=== PATIENT | female | born 1955 | race Caucasian/White ===

== ENCOUNTER 2021-06-18 10:34 | Outpatient (CLI) | payer SELFPAY ==
[2021-06-19 10:22] LABS: SARS-CoV-2 PCR by NAA Not Detected (NotDetected)
== END 2021-06-18 10:35 | disposition home or self-care (01) ==
LOC: CSHLAB 10:34
PROVIDERS: ATTEND Urology
DX: Z01.818 Encounter for other preprocedural examination (principal); Z20.822 Contact with and (suspected) exposure to COVID-19
CPT/HCPCS: 93005; 93010; U0003; U0005

== ENCOUNTER 2021-06-21 09:19 | Day surgery (SDC) | payer OTHER ==
[2021-06-19 10:50] VITALS: BMI 25.6
[2021-06-21] MEDS ORDERED: Lidocaine 1% MPF 2 ML VIAL ONE (10:14)
[2021-06-21] MEDS ORDERED: Iopamidol 30 ML ONE (10:47)
[2021-06-21] MEDS ORDERED: Fentanyl 100 MCG/2 ML VIAL ONE (11:04)
[2021-06-21] MEDS ORDERED: Glycopyrrolate 0.2 MG/ML 5 ML SYRINGE ONE (11:04)
[2021-06-21] MEDS ORDERED: Ondansetron PF 4 MG/2 ML Vial ONE (11:04)
[2021-06-21] MEDS ORDERED: PROPOFOL 20 ML ONE (11:04)
[2021-06-21] MEDS ORDERED: Dexamethasone 20 MG/5 ML VIAL ONE (11:04)
[2021-06-21] MEDS ORDERED: Dexamethasone 4 mg/ml Vial ONE (11:05)
[2021-06-21] MEDS ORDERED: Rocuronium Bromide 10 MG/ML (10ML VIAL) ONE (11:50)
[2021-06-21] MEDS ORDERED: PROPOFOL 40 ML ONE (12:10)
[2021-06-21] MEDS ORDERED: Midazolam HCl 2 mg/2 ml Vial ONE (12:11)
[2021-06-21] MEDS ORDERED: Albuterol Sulfate HFA (OR ONLY) ONE (12:11)
[2021-06-21] MEDS ORDERED: PHENYLEPHRINE-NS 100 MCG/ML 10 ML SYRINGE ONE (12:29)
[2021-06-21] MEDS ORDERED: SUGAMMADEX SODIUM 200 MG/2 ML VIAL ONE (12:34)
== END 2021-06-21 13:55 | disposition home or self-care (01) ==
LOC: CSHSDC 09:19
PROVIDERS: ATTEND Urology
PROC: 0TC68ZZ Extirpation of Matter from Right Ureter, Via Natural or Artificial Opening Endoscopic (ICD-10-PCS; principal; 2021-06-21)
PROC: 0T768DZ Dilation of Right Ureter with Intraluminal Device, Via Natural or Artificial Opening Endoscopic (ICD-10-PCS; principal; 2021-06-21)
DX: N20.1 Calculus of ureter (principal)
CPT/HCPCS: 51600; 74430; 82365; 88300; C1733; C2625; J0690; J1100; J2250; J2405; J2704; J3010; Q9967

== ENCOUNTER 2021-12-14 03:03 | Inpatient (IN) | payer SELFPAY ==
[2021-12-14] MEDS ORDERED: Adenosine 6 MG/2 ML VIAL ONE ×2 (03:21→11:17)
[2021-12-14] MEDS ORDERED: Nitroglycerin 50 MG/250 ML BOT 0 ML ONE ×2 (03:21→11:17)
[2021-12-14] MEDS ORDERED: Heparin 10,000 UNITS/ 10 ML VIAL ONE ×2 (03:21→11:17)
[2021-12-14] MEDS ORDERED: Fentanyl 100 MCG/2 ML VIAL ONE (03:23)
[2021-12-14] MEDS ORDERED: Midazolam HCl 5 mg/5 ml Vial ONE ×2 (03:23→11:19)
[2021-12-14] MEDS ORDERED: Lidocaine 1% 20 ML MDV ONE ×2 (03:23→11:19)
[2021-12-14] MEDS ORDERED: Atropine Sulfate 0.4 mg/1 ml Vial ONE (03:35)
[2021-12-14] MEDS ORDERED: Ondansetron PF 4 MG/2 ML Vial ONE (03:35)
[2021-12-14] MEDS ORDERED: TICAGRELOR 90 MG TABLET ONE (04:19)
[2021-12-14] MEDS ORDERED: Aggrastat 12.5 MG/250 ML 250 ML ONE (04:41)
[2021-12-14] MEDS: Sodium Chloride 0.9% 1,000 ML IV SCH ×2 (07:09→21:23)
[2021-12-14] MEDS: Nitroglycerin 0.4 MG TAB (25 Tab Bottle) SL PRN ×2 (07:47→08:26)
[2021-12-14] MEDS ORDERED: Aggrastat 12.5 MG/250 ML 250 ML IVPB SCH (08:00)
[2021-12-14] MEDS: Morphine 2 MG/ML VIAL SLOW IVP PRN ×4 (08:12→21:01)
[2021-12-14] MEDS ORDERED: Morphine 4 MG/ML VIAL SLOW IVP PRN (08:48)
[2021-12-14] MEDS ORDERED: Ondansetron PF 4 MG/2 ML Vial IVP SCH (09:00)
[2021-12-14] MEDS: Carvedilol 3.125 MG TAB PO SCH ×2 (09:06→16:42)
[2021-12-14] MEDS: Aspirin Chewable 81 MG TAB PO SCH (09:12)
[2021-12-14 09:16] LABS: Troponin I Greater than 45.000 ng/mL (< 0.028)
[2021-12-14] MEDS ORDERED: Morphine 4 MG/ML VIAL SLOW IVP SCH (10:45)
[2021-12-14] MEDS ORDERED: Iopamidol 300 61% 100 ML VIAL FS ONE ×2 (11:00)
[2021-12-14] MEDS ORDERED: Famotidine/PF 20 mg/2ml Vial SLOW IVP SCH (11:15)
[2021-12-14] MEDS ORDERED: Fentanyl 250 MCG/5 ML VIAL ONE (11:20)
[2021-12-14] MEDS ORDERED: Prevnar 13-Val Conj/PF 0.5 ML SYRINGE IM ONE (12:00)
[2021-12-14] MEDS ORDERED: Colchicine 0.6 MG TAB PO SCH ×2 (13:00→14:15)
[2021-12-14] MEDS ORDERED: Midazolam HCl 2 mg/2 ml Vial SLOW IVP PRN (13:21)
[2021-12-14 14:49] LABS: SARS-CoV-2 NAA Rapid Test Not Detected (NotDetected)
[2021-12-14 15:16] LABS: Cardiac Risk 4.7 (Less than 4.5)
[2021-12-14 19:54] LABS: Hemoglobin A1c 5.7 % (4.0-6.0)
[2021-12-14] MEDS ORDERED: Atorvastatin Calcium 40 MG TAB PO SCH (21:00)
[2021-12-14] MEDS: TICAGRELOR 90 MG TABLET PO SCH (21:01)
[2021-12-14] MEDS ORDERED: ALPRAZolam 0.5 MG TAB ONE (22:31)
[2021-12-14] MEDS ORDERED: Ondansetron ODT 4 MG TAB ONE (22:32)
[2021-12-14] MEDS ORDERED: Acetaminophen 500 MG TAB ONE (22:36)
[2021-12-14] MEDS ORDERED: Enoxaparin Sodium 60 MG/0.6 ML SYRINGE ONE (22:37)
[2021-12-14] MEDS ORDERED: Midodrine HCl 2.5 MG TAB ONE (22:44)
[2021-12-14] MEDS ORDERED: ALPRAZolam 0.5 MG TAB PO SCH (23:00)
[2021-12-14] MEDS ORDERED: Enoxaparin Sodium 60 MG/0.6 ML SYRINGE SC SCH (23:00)
[2021-12-14] MEDS: Acetaminophen 500 MG TAB PO PRN (23:20)
[2021-12-14] MEDS: Midodrine HCl 2.5 MG TAB PO PRN (23:21)
[2021-12-14] MEDS: Ondansetron ODT 4 MG TAB SL PRN (23:21)
[2021-12-15] MEDS: Morphine 2 MG/ML VIAL SLOW IVP PRN ×4 (00:06→11:35)
[2021-12-15] MEDS: Sodium Chloride 0.9% 1,000 ML IV SCH (02:25)
[2021-12-15 03:52] LABS: ALT (SGPT) 89 U/L (8-55); AST (SGOT) 611 U/L (5-34); Albumin 3.6 g/dL (3.4-4.8); Alkaline Phosphatase 70 U/L (40-110); Anion Gap 16 mmol/L (10-20); BUN (Urea Nitrogen) 26 mg/dL (9.8-20.1); Bilirubin, Total 0.8 mg/dL (0.2-1.2); Calc. Creatinine Clearance 47 mL/min (70-130); Calcium 8.8 mg/dL (7.8-10.44); Carbon Dioxide 18 mmol/L (23-31); Chloride 109 mmol/L (98-107); Globulin 2.6 g/dL (2.4-3.5); Glucose 137 mg/dL (80-115); Potassium 4.3 mmol/L (3.5-5.1); Protein, Total 6.2 g/dL (5.8-8.1); Sodium 139 mmol/L (136-145)
[2021-12-15 03:53] LABS: #Monocytes 1.6 10x3/uL (0.0-1.1); #Neutrophils 11.9 10x3/uL (1.5-8.4); %Basophils 0.1 % (0.0-2.0); %Lymphocytes 9.4 % (18.0-47.0); %Monocytes 10.4 % (0.0-10.0); %Neutrophils 79.4 % (40.0-75.0); Hemoglobin 12.3 g/dL (12.0-15.5); Mean Corpuscular HGB CONC 32.7 g/dL (32.0-36.0); Mean Corpuscular Hemoglobin 33.4 pg (27.0-33.0); Mean Corpuscular Volume 102.2 fl (81.6-98.3); Mean Platelet Volume 9.5 fl (7.4-10.4); Platelet Count 209 10x3/uL (150-450); RBC Distribution Width 13.5 % (11.5-14.5); Red Blood Cell (RBC) Count 3.68 10x6/uL (3.90-5.03)
[2021-12-15] MEDS: Acetaminophen 500 MG TAB PO PRN ×2 (08:07→20:41)
[2021-12-15] MEDS: Colchicine 0.6 MG TAB PO SCH (08:08)
[2021-12-15] MEDS: TICAGRELOR 90 MG TABLET PO SCH ×2 (08:08→21:57)
[2021-12-15] MEDS: Midodrine HCl 2.5 MG TAB PO PRN ×3 (08:08→20:43)
[2021-12-15] MEDS: ALPRAZolam 0.25 MG TAB PO PRN (08:09)
[2021-12-15] MEDS ORDERED: Enoxaparin Sodium 60 MG/0.6 ML SYRINGE SC SCH (09:00)
[2021-12-15] MEDS ORDERED: Melatonin 3 MG TAB PO PRN (10:50)
[2021-12-15] MEDS ORDERED: Ondansetron PF 4 MG/2 ML Vial IVP SCH (12:00)
[2021-12-15] MEDS ORDERED: Digoxin 0.125 MG TAB PO SCH (12:15)
[2021-12-15] MEDS ORDERED: Empagliflozin 10 MG TAB PO SCH (12:15)
[2021-12-15] MEDS ORDERED: Ivabradine 5 MG TAB PO SCH (12:30)
[2021-12-15] MEDS ORDERED: Multivit, Therapeutic 1 TAB PO SCH (12:30)
[2021-12-15] MEDS ORDERED: Acetylcysteine 800 MG/4 ML VIAL PO SCH (12:30)
[2021-12-15] MEDS: Aspirin Chewable 81 MG TAB PO SCH (12:36)
[2021-12-15] MEDS: Carvedilol 3.125 MG TAB PO SCH ×2 (13:53→17:40)
[2021-12-15] MEDS: DOBUTamine 500 mg/250 ml 500 MG in Premix Bag 1 BAG IVPB SCH (14:58)
[2021-12-15] MEDS: Enoxaparin Sodium 40 MG/0.4 ML SYRINGE SC SCH (21:56)
[2021-12-15] MEDS: Atorvastatin Calcium 40 MG TAB PO SCH (21:57)
[2021-12-15] MEDS: Metoprolol Tartrate 25 MG TAB PO SCH (21:58)
[2021-12-15] MEDS: Ivabradine 5 MG TAB PO SCH (22:00)
[2021-12-15] MEDS: Acetylcysteine 800 MG/4 ML VIAL PO SCH (22:23)
[2021-12-16] MEDS: Ondansetron ODT 4 MG TAB SL PRN ×3 (00:39→22:42)
[2021-12-16] MEDS: Morphine 2 MG/ML VIAL SLOW IVP PRN (01:30)
[2021-12-16] MEDS: ALPRAZolam 0.25 MG TAB PO PRN ×3 (01:31→23:32)
[2021-12-16] MEDS: Midodrine HCl 2.5 MG TAB PO PRN ×4 (07:49→22:41)
[2021-12-16] MEDS: DOBUTamine 500 mg/250 ml 500 MG in Premix Bag 1 BAG IVPB SCH (07:50)
[2021-12-16] MEDS: Enoxaparin Sodium 40 MG/0.4 ML SYRINGE SC SCH ×2 (09:00→20:28)
[2021-12-16] MEDS: Acetylcysteine 800 MG/4 ML VIAL PO SCH ×2 (09:02→20:24)
[2021-12-16] MEDS: Multivit, Therapeutic 1 TAB PO SCH (09:03)
[2021-12-16] MEDS: Empagliflozin 10 MG TAB PO SCH (09:03)
[2021-12-16] MEDS: Digoxin 0.125 MG TAB PO SCH (09:03)
[2021-12-16] MEDS: Ivabradine 5 MG TAB PO SCH ×2 (09:04→20:27)
[2021-12-16] MEDS: Aspirin Chewable 81 MG TAB PO SCH (09:04)
[2021-12-16] MEDS: TICAGRELOR 90 MG TABLET PO SCH ×2 (09:04→20:25)
[2021-12-16] MEDS: Colchicine 0.6 MG TAB PO SCH (09:04)
[2021-12-16] MEDS: Acetaminophen 500 MG TAB PO PRN ×2 (09:04→20:25)
[2021-12-16] MEDS: Carvedilol 3.125 MG TAB PO SCH ×2 (12:36→17:31)
[2021-12-16] MEDS: Metoprolol Tartrate 25 MG TAB PO SCH (12:36)
[2021-12-16] MEDS ORDERED: Sodium Chloride 0.9% 400 ML IV SCH (17:30)
[2021-12-16] MEDS: Atorvastatin Calcium 40 MG TAB PO SCH (20:25)
[2021-12-16] MEDS: Docusate 100 MG CAP PO SCH (20:26)
[2021-12-17] MEDS: Metoprolol Tartrate 25 MG TAB PO SCH (00:04)
[2021-12-17] MEDS: Acetaminophen 500 MG TAB PO PRN (02:20)
[2021-12-17] MEDS: Morphine 2 MG/ML VIAL SLOW IVP PRN (02:35)
[2021-12-17] MEDS: Midodrine HCl 2.5 MG TAB PO PRN (03:20)
[2021-12-17 03:22] LABS: %Basophils 0.2 % (0.0-2.0); %Eosinophils 0.4 % (0.0-6.0); %Lymphocytes 14.4 % (18.0-47.0); %Monocytes 9.3 % (0.0-10.0); %Neutrophils 74.2 % (40.0-75.0); Hemoglobin 10.9 g/dL (12.0-15.5); Mean Corpuscular HGB CONC 33.5 g/dL (32.0-36.0); Mean Corpuscular Hemoglobin 33.9 pg (27.0-33.0); Mean Corpuscular Volume 100.9 fl (81.6-98.3); Mean Platelet Volume 10.3 fl (7.4-10.4); Platelet Count 192 10x3/uL (150-450); RBC Distribution Width 13.3 % (11.5-14.5); Red Blood Cell (RBC) Count 3.22 10x6/uL (3.90-5.03); White Blood Cell (WBC) Count 10.7 10x3/uL (3.5-10.5)
[2021-12-17 03:50] LABS: Anion Gap 16 mmol/L (10-20); BUN (Urea Nitrogen) 48 mg/dL (9.8-20.1); Calc. Creatinine Clearance 36 mL/min (70-130); Calcium 8.9 mg/dL (7.8-10.44); Carbon Dioxide 20 mmol/L (23-31); Chloride 105 mmol/L (98-107); Glucose 106 mg/dL (80-115); Potassium 3.5 mmol/L (3.5-5.1); Sodium 137 mmol/L (136-145)
[2021-12-17] MEDS: DOBUTamine 500 mg/250 ml 500 MG in Premix Bag 1 BAG IVPB SCH (05:20)
[2021-12-17] MEDS ORDERED: DOBUTamine 500 mg/250 ml 250 ML ONE (05:23)
[2021-12-17] MEDS: Aspirin Chewable 81 MG TAB PO SCH (09:01)
[2021-12-17] MEDS: Acetylcysteine 800 MG/4 ML VIAL PO SCH ×2 (09:01→21:29)
[2021-12-17] MEDS: Digoxin 0.125 MG TAB PO SCH (09:02)
[2021-12-17] MEDS: Docusate 100 MG CAP PO SCH ×2 (09:03→21:29)
[2021-12-17] MEDS: Colchicine 0.6 MG TAB PO SCH (09:03)
[2021-12-17] MEDS: Enoxaparin Sodium 40 MG/0.4 ML SYRINGE SC SCH ×3 (09:04→21:34)
[2021-12-17] MEDS: Multivit, Therapeutic 1 TAB PO SCH (09:05)
[2021-12-17] MEDS: TICAGRELOR 90 MG TABLET PO SCH ×2 (09:06→21:31)
[2021-12-17] MEDS: Empagliflozin 10 MG TAB PO SCH (09:15)
[2021-12-17] MEDS: Ivabradine 5 MG TAB PO SCH ×3 (09:16→21:34)
[2021-12-17] MEDS: Carvedilol 3.125 MG TAB PO SCH ×2 (12:38→17:32)
[2021-12-17] MEDS ORDERED: Midodrine HCl 5 MG TAB PO SCH (14:00)
[2021-12-17] MEDS ORDERED: Sodium Chloride 0.45% 250 ML IV SCH (14:15)
[2021-12-17] MEDS ORDERED: Potassium Chloride 20 MEQ TAB PO SCH (17:00)
[2021-12-17] MEDS: Ondansetron ODT 4 MG TAB SL PRN (19:44)
[2021-12-17] MEDS: Atorvastatin Calcium 40 MG TAB PO SCH ×2 (21:17→21:34)
[2021-12-18] MEDS ORDERED: Haloperidol Lactate 5 MG/ML VIAL SLOW IVP SCH (00:15)
[2021-12-18] MEDS: Morphine 2 MG/ML VIAL SLOW IVP PRN (00:47)
[2021-12-18 03:04] LABS: Hemoglobin 10.8 g/dL (12.0-15.5); Mean Corpuscular HGB CONC 34.4 g/dL (32.0-36.0); Mean Corpuscular Hemoglobin 33.6 pg (27.0-33.0); Mean Corpuscular Volume 97.8 fl (81.6-98.3); Mean Platelet Volume 10.7 fl (7.4-10.4); Platelet Count 245 10x3/uL (150-450); RBC Distribution Width 13.5 % (11.5-14.5); Red Blood Cell (RBC) Count 3.21 10x6/uL (3.90-5.03); White Blood Cell (WBC) Count 11.3 10x3/uL (3.5-10.5)
[2021-12-18 03:14] LABS: MDiff Complete? YES; Manual Diff?? YES
[2021-12-18 03:20] LABS: Anion Gap 20 mmol/L (10-20); BUN (Urea Nitrogen) 50 mg/dL (9.8-20.1); Calc. Creatinine Clearance 33 mL/min (70-130); Calcium 9.2 mg/dL (7.8-10.44); Carbon Dioxide 16 mmol/L (23-31); Chloride 106 mmol/L (98-107); Glucose 139 mg/dL (80-115); Sodium 138 mmol/L (136-145)
[2021-12-18 03:42] LABS: Band 11 % (5-11); Lymphocytes 11 % (21-51); Monocytes 7 % (0-10); Neutrophil 70 % (42-75); Reactive Lymphocytes 1 % (0-10)
[2021-12-18 03:43] LABS: Platelet Morphology Comment Appears Adequate
[2021-12-18] MEDS: Enoxaparin Sodium 40 MG/0.4 ML SYRINGE SC SCH (08:48)
[2021-12-18] MEDS: Ivabradine 5 MG TAB PO SCH ×2 (08:49→20:12)
[2021-12-18] MEDS: Docusate 100 MG CAP PO SCH (08:49)
[2021-12-18] MEDS: Multivit, Therapeutic 1 TAB PO SCH (08:49)
[2021-12-18] MEDS: Digoxin 0.125 MG TAB PO SCH (08:50)
[2021-12-18] MEDS: Colchicine 0.6 MG TAB PO SCH (08:50)
[2021-12-18] MEDS: Aspirin Chewable 81 MG TAB PO SCH (08:50)
[2021-12-18] MEDS: Acetylcysteine 800 MG/4 ML VIAL PO SCH (08:51)
[2021-12-18] MEDS: ALPRAZolam 0.25 MG TAB PO PRN (08:51)
[2021-12-18] MEDS: TICAGRELOR 90 MG TABLET PO SCH ×2 (08:51→20:13)
[2021-12-18] MEDS: Carvedilol 3.125 MG TAB PO SCH ×2 (08:51→18:22)
[2021-12-18] MEDS: Empagliflozin 10 MG TAB PO SCH (08:51)
[2021-12-18] MEDS ORDERED: Dexmedetomidine In 0.9 % NaCl 100 ML ONE (10:24)
[2021-12-18] MEDS: Dexmedetomidine In 0.9 % NaCl 400 MCG in Premix Bag 1 BAG IVPB SCH ×3 (10:26→20:13)
[2021-12-18] MEDS: Atorvastatin Calcium 40 MG TAB PO SCH (20:12)
[2021-12-18] MEDS ORDERED: Enoxaparin Sodium 40 MG/0.4 ML SYRINGE SC SCH (21:00)
[2021-12-19] MEDS: Dexmedetomidine In 0.9 % NaCl 400 MCG in Premix Bag 1 BAG IVPB SCH (02:22)
[2021-12-19 03:50] LABS: Hemoglobin 11.2 g/dL (12.0-15.5); Mean Corpuscular HGB CONC 32.4 g/dL (32.0-36.0); Mean Corpuscular Hemoglobin 33.4 pg (27.0-33.0); Mean Corpuscular Volume 103.3 fl (81.6-98.3); Mean Platelet Volume 11.1 fl (7.4-10.4); Platelet Count 191 10x3/uL (150-450); Red Blood Cell (RBC) Count 3.35 10x6/uL (3.90-5.03); White Blood Cell (WBC) Count 9.1 10x3/uL (3.5-10.5)
[2021-12-19 04:04] LABS: Anion Gap 23 mmol/L (10-20); BUN (Urea Nitrogen) 75 mg/dL (9.8-20.1); Calc. Creatinine Clearance 24 mL/min (70-130); Calcium 8.5 mg/dL (7.8-10.44); Carbon Dioxide 15 mmol/L (23-31); Chloride 107 mmol/L (98-107); Glucose 86 mg/dL (80-115); Sodium 140 mmol/L (136-145)
[2021-12-19 04:13] LABS: ALT (SGPT) 906 U/L (8-55); AST (SGOT) 2156 U/L (5-34); Albumin 3.2 g/dL (3.4-4.8); Alkaline Phosphatase 77 U/L (40-110); Bilirubin, Direct 1.6 mg/dL (0.1-0.3); Bilirubin, Total 2.6 mg/dL (0.2-1.2); Protein, Total 5.6 g/dL (5.8-8.1)
[2021-12-19 04:19] LABS: MDiff Complete? YES; Manual Diff?? YES
[2021-12-19 04:24] LABS: Band 11 % (5-11); Lymphocytes 5 % (21-51); Metamyelocyte 1 % (0-0); Monocytes 10 % (0-10); Neutrophil 73 % (42-75)
[2021-12-19 04:25] LABS: Platelet Morphology Comment Appears Adequate
[2021-12-19] MEDS: TICAGRELOR 90 MG TABLET PO SCH ×2 (08:29→20:38)
[2021-12-19] MEDS: Colchicine 0.6 MG TAB PO SCH (08:29)
[2021-12-19] MEDS: Aspirin Chewable 81 MG TAB PO SCH (08:29)
[2021-12-19] MEDS: Carvedilol 3.125 MG TAB PO SCH ×2 (08:29→17:30)
[2021-12-19] MEDS: Digoxin 0.125 MG TAB PO SCH (08:29)
[2021-12-19] MEDS: Empagliflozin 10 MG TAB PO SCH (08:30)
[2021-12-19] MEDS: Multivit, Therapeutic 1 TAB PO SCH (08:30)
[2021-12-19] MEDS: Ivabradine 5 MG TAB PO SCH ×2 (10:45→20:33)
[2021-12-19] MEDS: Enoxaparin Sodium 30 MG/0.3 ML SYRINGE SC SCH (20:38)
[2021-12-19] MEDS: Atorvastatin Calcium 40 MG TAB PO SCH (20:38)
[2021-12-20 03:54] LABS: #Eosinphils 0.1 10x3/uL (0.0-0.5); #Monocytes 0.9 10x3/uL (0.0-1.1); %Basophils 0.3 % (0.0-2.0); %Eosinophils 0.5 % (0.0-6.0); %Lymphocytes 6.8 % (18.0-47.0); %Neutrophils 80.6 % (40.0-75.0); Hemoglobin 10.7 g/dL (12.0-15.5); Mean Corpuscular HGB CONC 32.6 g/dL (32.0-36.0); Mean Corpuscular Hemoglobin 33.1 pg (27.0-33.0); Mean Corpuscular Volume 101.5 fl (81.6-98.3); Platelet Count 236 10x3/uL (150-450); RBC Distribution Width 13.9 % (11.5-14.5); Red Blood Cell (RBC) Count 3.23 10x6/uL (3.90-5.03); White Blood Cell (WBC) Count 11.2 10x3/uL (3.5-10.5)
[2021-12-20 04:01] LABS: Anion Gap 19 mmol/L (10-20); BUN (Urea Nitrogen) 83 mg/dL (9.8-20.1); Calc. Creatinine Clearance 25 mL/min (70-130); Calcium 8.8 mg/dL (7.8-10.44); Carbon Dioxide 18 mmol/L (23-31); Chloride 108 mmol/L (98-107); Glucose 80 mg/dL (80-115); Potassium 3.9 mmol/L (3.5-5.1); Sodium 141 mmol/L (136-145)
[2021-12-20 07:38] LABS: ALT (SGPT) 873 U/L (8-55); AST (SGOT) 1409 U/L (5-34)
[2021-12-20] MEDS: Multivit, Therapeutic 1 TAB PO SCH (08:34)
[2021-12-20] MEDS: Colchicine 0.6 MG TAB PO SCH (08:34)
[2021-12-20] MEDS: Carvedilol 3.125 MG TAB PO SCH ×2 (08:34→16:51)
[2021-12-20] MEDS: Aspirin Chewable 81 MG TAB PO SCH (08:34)
[2021-12-20] MEDS: TICAGRELOR 90 MG TABLET PO SCH ×2 (08:34→21:01)
[2021-12-20] MEDS: Digoxin 0.125 MG TAB PO SCH (08:34)
[2021-12-20] MEDS: Empagliflozin 10 MG TAB PO SCH (08:36)
[2021-12-20] MEDS: Ivabradine 5 MG TAB PO SCH (08:37)
[2021-12-20] MEDS: Ondansetron ODT 4 MG TAB SL PRN (12:33)
[2021-12-20] MEDS: Enoxaparin Sodium 30 MG/0.3 ML SYRINGE SC SCH (21:00)
[2021-12-20] MEDS: Atorvastatin Calcium 40 MG TAB PO SCH (21:01)
[2021-12-21] MEDS: Carvedilol 3.125 MG TAB PO SCH ×2 (08:22→16:37)
[2021-12-21] MEDS: Aspirin Chewable 81 MG TAB PO SCH (08:22)
[2021-12-21] MEDS: Colchicine 0.6 MG TAB PO SCH (08:23)
[2021-12-21] MEDS: Digoxin 0.125 MG TAB PO SCH (08:23)
[2021-12-21] MEDS: Multivit, Therapeutic 1 TAB PO SCH (08:24)
[2021-12-21] MEDS: TICAGRELOR 90 MG TABLET PO SCH ×2 (08:25→20:16)
[2021-12-21] MEDS: Empagliflozin 10 MG TAB PO SCH (08:26)
[2021-12-21 10:55] LABS: #Eosinphils 0.1 10x3/uL (0.0-0.5); #Monocytes 0.8 10x3/uL (0.0-1.1); #Neutrophils 6.3 10x3/uL (1.5-8.4); %Basophils 0.2 % (0.0-2.0); %Eosinophils 1.1 % (0.0-6.0); %Lymphocytes 6.2 % (18.0-47.0); %Monocytes 9.5 % (0.0-10.0); %Neutrophils 78.3 % (40.0-75.0); Hemoglobin 10.7 g/dL (12.0-15.5); Mean Corpuscular HGB CONC 34.1 g/dL (32.0-36.0); Mean Corpuscular Hemoglobin 33.8 pg (27.0-33.0); Mean Corpuscular Volume 99.1 fl (81.6-98.3); Mean Platelet Volume 12.2 fl (7.4-10.4); Platelet Count 254 10x3/uL (150-450); RBC Distribution Width 14.1 % (11.5-14.5); Red Blood Cell (RBC) Count 3.17 10x6/uL (3.90-5.03)
[2021-12-21 11:09] LABS: ALT (SGPT) 1126 U/L (8-55); AST (SGOT) 1809 U/L (5-34); Albumin 2.9 g/dL (3.4-4.8); Alkaline Phosphatase 100 U/L (40-110); Anion Gap 16 mmol/L (10-20); BUN (Urea Nitrogen) 59 mg/dL (9.8-20.1); Bilirubin, Total 1.8 mg/dL (0.2-1.2); Calc. Creatinine Clearance 36 mL/min (70-130); Calcium 8.5 mg/dL (7.8-10.44); Carbon Dioxide 20 mmol/L (23-31); Chloride 111 mmol/L (98-107); Globulin 3.1 g/dL (2.4-3.5); Glucose 89 mg/dL (80-115); Potassium 3.5 mmol/L (3.5-5.1); Sodium 143 mmol/L (136-145)
[2021-12-21] MEDS ORDERED: Potassium Chloride 20 MEQ TAB PO SCH (11:45)
[2021-12-21 13:23] LABS: Bilirubin Neg (Negative); Blood, Urine 250 (Negative); Clarity Cloudy (Clear); Glucose, Urine (Dipstick) 250 mg/dL (Negative); Ketone, Urine 15 mg/dL (Negative); Leukocyte 500 (Negative); Nitrite Negative (Negative); Protein, Urine (Dipstick) 100 mg/dl (Neg-Trace)
[2021-12-21 13:25] LABS: Urine Culture Reflex No No
[2021-12-21 13:27] LABS: WBC/HPF 21-50 HPF (0-3)
[2021-12-21 13:28] LABS: Bacteria/HPF 2+ HPF (None Seen)
[2021-12-21] MEDS: Enoxaparin Sodium 30 MG/0.3 ML SYRINGE SC SCH (20:16)
[2021-12-21] MEDS: Ondansetron ODT 4 MG TAB SL PRN (21:23)
[2021-12-22] MEDS: Ondansetron ODT 4 MG TAB SL PRN ×2 (01:29→07:45)
[2021-12-22 04:31] LABS: #Monocytes 0.9 10x3/uL (0.0-1.1); #Neutrophils 6.7 10x3/uL (1.5-8.4); %Basophils 0.2 % (0.0-2.0); %Eosinophils 0.5 % (0.0-6.0); %Monocytes 10.1 % (0.0-10.0); %Neutrophils 79.7 % (40.0-75.0); Hemoglobin 12.8 g/dL (12.0-15.5); Mean Corpuscular Hemoglobin 33.6 pg (27.0-33.0); Mean Corpuscular Volume 98.7 fl (81.6-98.3); Mean Platelet Volume 12.3 fl (7.4-10.4); Platelet Count 265 10x3/uL (150-450); RBC Distribution Width 14.1 % (11.5-14.5); Red Blood Cell (RBC) Count 3.81 10x6/uL (3.90-5.03); White Blood Cell (WBC) Count 8.4 10x3/uL (3.5-10.5)
[2021-12-22 04:56] LABS: ALT (SGPT) 1002 U/L (8-55); AST (SGOT) 1254 U/L (5-34); Albumin 3.1 g/dL (3.4-4.8); Alkaline Phosphatase 114 U/L (40-110); Anion Gap 21 mmol/L (10-20); BUN (Urea Nitrogen) 51 mg/dL (9.8-20.1); Bilirubin, Total 1.7 mg/dL (0.2-1.2); Calc. Creatinine Clearance 38 mL/min (70-130); Carbon Dioxide 15 mmol/L (23-31); Chloride 114 mmol/L (98-107); Globulin 2.7 g/dL (2.4-3.5); Glucose 86 mg/dL (80-115); Potassium 4.6 mmol/L (3.5-5.1); Protein, Total 5.8 g/dL (5.8-8.1); Sodium 145 mmol/L (136-145)
[2021-12-22] MEDS: Multivit, Therapeutic 1 TAB PO SCH (08:03)
[2021-12-22] MEDS: Aspirin Chewable 81 MG TAB PO SCH (08:04)
[2021-12-22] MEDS: TICAGRELOR 90 MG TABLET PO SCH ×2 (08:04→22:28)
[2021-12-22] MEDS: Carvedilol 3.125 MG TAB PO SCH ×2 (08:04→16:04)
[2021-12-22] MEDS: Ondansetron PF 4 MG/2 ML Vial IVP PRN ×2 (14:20→19:24)
[2021-12-22] MEDS: Enoxaparin Sodium 30 MG/0.3 ML SYRINGE SC SCH (22:28)
[2021-12-23] MEDS: Aspirin Chewable 81 MG TAB PO SCH (09:44)
[2021-12-23] MEDS: Multivit, Therapeutic 1 TAB PO SCH (09:44)
[2021-12-23] MEDS: Carvedilol 3.125 MG TAB PO SCH ×2 (09:44→17:24)
[2021-12-23] MEDS: TICAGRELOR 90 MG TABLET PO SCH ×2 (09:45→21:14)
[2021-12-23 12:01] LABS: ALT (SGPT) 663 U/L (8-55); AST (SGOT) 531 U/L (5-34); Albumin 3.1 g/dL (3.4-4.8); Alkaline Phosphatase 96 U/L (40-110); Anion Gap 17 mmol/L (10-20); BUN (Urea Nitrogen) 50 mg/dL (9.8-20.1); Bilirubin, Total 1.7 mg/dL (0.2-1.2); Calc. Creatinine Clearance 36 mL/min (70-130); Calcium 9.6 mg/dL (7.8-10.44); Carbon Dioxide 20 mmol/L (23-31); Chloride 113 mmol/L (98-107); Globulin 3.4 g/dL (2.4-3.5); Glucose 110 mg/dL (80-115); Potassium 4.1 mmol/L (3.5-5.1); Protein, Total 6.5 g/dL (5.8-8.1); Sodium 146 mmol/L (136-145)
[2021-12-23] MEDS: Ondansetron PF 4 MG/2 ML Vial IVP PRN (12:37)
[2021-12-23] MEDS: Enoxaparin Sodium 30 MG/0.3 ML SYRINGE SC SCH (21:13)
[2021-12-23] MEDS: Nitroglycerin 0.4 MG TAB (25 Tab Bottle) SL PRN (22:11)
[2021-12-24 04:45] LABS: ALT (SGPT) 539 U/L (8-55); AST (SGOT) 326 U/L (5-34); Albumin 3.3 g/dL (3.4-4.8); Alkaline Phosphatase 97 U/L (40-110); Anion Gap 19 mmol/L (10-20); BUN (Urea Nitrogen) 51 mg/dL (9.8-20.1); Bilirubin, Total 1.7 mg/dL (0.2-1.2); Calc. Creatinine Clearance 37 mL/min (70-130); Calcium 9.5 mg/dL (7.8-10.44); Carbon Dioxide 19 mmol/L (23-31); Chloride 114 mmol/L (98-107); Globulin 3.3 g/dL (2.4-3.5); Glucose 108 mg/dL (80-115); Potassium 4.3 mmol/L (3.5-5.1); Protein, Total 6.6 g/dL (5.8-8.1); Sodium 148 mmol/L (136-145)
[2021-12-24] MEDS: Aspirin Chewable 81 MG TAB PO SCH (09:01)
[2021-12-24] MEDS: Multivit, Therapeutic 1 TAB PO SCH (09:01)
[2021-12-24] MEDS: TICAGRELOR 90 MG TABLET PO SCH (09:02)
[2021-12-24] MEDS ORDERED: Furosemide 40 MG/4 ML VIAL SLOW IVP SCH (10:15)
[2021-12-24 11:11] LABS: Thyroid Stimulating Hormone 4.9778 uIU/mL (0.35-4.94)
[2021-12-24 15:07] LABS: T4 5.6 ug/dL (4.87-11.72)
[2021-12-24] MEDS ORDERED: Clopidogrel Bisulfate 300 MG TAB PO SCH (17:30)
[2021-12-24] MEDS ORDERED: Enoxaparin Sodium 30 MG/0.3 ML SYRINGE ONE (20:50)
[2021-12-24] MEDS ORDERED: Ondansetron PF 4 MG/2 ML Vial IVP SCH (21:00)
[2021-12-24] MEDS: Enoxaparin Sodium 30 MG/0.3 ML SYRINGE SC SCH (21:20)
[2021-12-24] MEDS: Melatonin 3 MG TAB PO SCH (21:22)
[2021-12-25] MEDS: Multivit, Therapeutic 1 TAB PO SCH (09:42)
[2021-12-25] MEDS: Clopidogrel Bisulfate 75 MG TAB PO SCH (09:42)
[2021-12-25] MEDS: Aspirin Chewable 81 MG TAB PO SCH (09:42)
[2021-12-25 11:35] LABS: ALT (SGPT) 398 U/L (8-55); AST (SGOT) 136 U/L (5-34); Albumin 3.4 g/dL (3.4-4.8); Alkaline Phosphatase 84 U/L (40-110); Anion Gap 18 mmol/L (10-20); BUN (Urea Nitrogen) 63 mg/dL (9.8-20.1); Bilirubin, Total 1.6 mg/dL (0.2-1.2); Calc. Creatinine Clearance 30 mL/min (70-130); Calcium 9.5 mg/dL (7.8-10.44); Carbon Dioxide 23 mmol/L (23-31); Chloride 110 mmol/L (98-107); Estimated GFR 26; Globulin 3.6 g/dL (2.4-3.5); Glucose 145 mg/dL (80-115); Potassium 3.5 mmol/L (3.5-5.1); Sodium 147 mmol/L (136-145)
[2021-12-25] MEDS ORDERED: Potassium Chloride 20 MEQ TAB PO SCH (14:00)
[2021-12-25] MEDS: Ondansetron ODT 4 MG TAB SL PRN (18:16)
[2021-12-25] MEDS: Acetaminophen 500 MG TAB PO PRN (20:44)
[2021-12-25] MEDS: Melatonin 3 MG TAB PO SCH (20:46)
[2021-12-25] MEDS: Enoxaparin Sodium 30 MG/0.3 ML SYRINGE SC SCH (20:46)
[2021-12-25] MEDS: DOBUTamine 500 mg/250 ml 250 ML IVPB SCH (22:57)
[2021-12-25] MEDS: ALPRAZolam 0.25 MG TAB PO PRN (23:58)
[2021-12-26] MEDS: Aspirin Chewable 81 MG TAB PO SCH (08:29)
[2021-12-26] MEDS: Clopidogrel Bisulfate 75 MG TAB PO SCH (08:29)
[2021-12-26] MEDS: Multivit, Therapeutic 1 TAB PO SCH (08:29)
[2021-12-26 10:12] LABS: Hemoglobin 11.9 g/dL (12.0-15.5); Mean Corpuscular HGB CONC 32.6 g/dL (32.0-36.0); Mean Corpuscular Hemoglobin 33.7 pg (27.0-33.0); Mean Corpuscular Volume 103.4 fl (81.6-98.3); Mean Platelet Volume 12.8 fl (7.4-10.4); Platelet Count 263 10x3/uL (150-450); Red Blood Cell (RBC) Count 3.53 10x6/uL (3.90-5.03); White Blood Cell (WBC) Count 12.5 10x3/uL (3.5-10.5)
[2021-12-26 10:38] LABS: ALT (SGPT) 272 U/L (8-55); AST (SGOT) 75 U/L (5-34); Alkaline Phosphatase 72 U/L (40-110); Anion Gap 17 mmol/L (10-20); BUN (Urea Nitrogen) 72 mg/dL (9.8-20.1); Bilirubin, Total 1.7 mg/dL (0.2-1.2); Calc. Creatinine Clearance 29 mL/min (70-130); Calcium 9.4 mg/dL (7.8-10.44); Carbon Dioxide 23 mmol/L (23-31); Chloride 115 mmol/L (98-107); Estimated GFR 25; Globulin 3.5 g/dL (2.4-3.5); Glucose 120 mg/dL (80-115); Magnesium 2.9 mg/dL (1.6-2.6); Potassium 4.2 mmol/L (3.5-5.1); Protein, Total 6.5 g/dL (5.8-8.1); Sodium 151 mmol/L (136-145)
[2021-12-26] MEDS: Acetaminophen 500 MG TAB PO PRN ×2 (11:45→23:58)
[2021-12-26] MEDS ORDERED: diphenhydrAMINE 50 MG/ML VIAL ONE (16:13)
[2021-12-26] MEDS ORDERED: diphenhydrAMINE 50 MG/ML VIAL IVP SCH (16:15)
[2021-12-26 19:17] LABS: Bilirubin 1+ (Negative); Blood, Urine Negative (Negative); Clarity Clear (Clear); Glucose, Urine (Dipstick) Normal (Negative); Ketone, Urine 5 mg/dL (Negative); Leukocyte 25 (Negative); Nitrite Negative (Negative); Protein, Urine (Dipstick) 30 mg/dl (Neg-Trace)
[2021-12-26 19:21] LABS: Urine Culture Reflex No No
[2021-12-26 19:38] LABS: RBC/HPF 0-3 HPF (0-3); WBC/HPF 0-3 HPF (0-3)
[2021-12-26 19:39] LABS: Bacteria/HPF 1+ HPF (None Seen)
[2021-12-26] MEDS ORDERED: Cyanocobalamin 1000 MCG/ML VIAL IM SCH (20:00)
[2021-12-26] MEDS ORDERED: Albumin 25% 25 GM/100 ML BOT IVPB SCH (21:00)
[2021-12-26] MEDS ORDERED: Allopurinol 100 MG TAB PO SCH (21:00)
[2021-12-26] MEDS ORDERED: Colchicine 0.6 MG TAB PO SCH (21:00)
[2021-12-26] MEDS: Melatonin 3 MG TAB PO SCH (21:31)
[2021-12-26] MEDS: TICAGRELOR 90 MG TABLET PO SCH (21:32)
[2021-12-26] MEDS: DOBUTamine 500 mg/250 ml 250 ML IVPB SCH (22:12)
[2021-12-26] MEDS: ALPRAZolam 0.25 MG TAB PO PRN (23:58)
[2021-12-27 01:13] LABS: Actual Bicarbonate (HCO3a) 25.1 mEq/L (22-28); Base Excess (BEa) 0.1 mEq/L (-2.0 to +3.0); CO2 Tension 42.2 mmHg (35.0-45.0); Calcium, Ionized (arterial) 1.21 mmol/L (1.12-1.30); Carboxyhemoglobin (COHb) 0.2 gm% (0.0-3.0); Critical Notified By: CP.PH; Hemoglobin (Hb) 12.5 g/dL (12.0-16.0); O2 Tension (PaO2), arterial 108.1 mmHg (> 80.0); Puncture Site RBA; RapidComm Collect By CP.PH; pH, Arterial 7.39 (7.35-7.45)
[2021-12-27] MEDS ORDERED: Sodium Chloride 0.9% 500 ML IV SCH (01:30)
[2021-12-27 01:40] LABS: Hemoglobin 12.5 g/dL (12.0-15.5); Mean Corpuscular Hemoglobin 33.4 pg (27.0-33.0); Mean Corpuscular Volume 101.3 fl (81.6-98.3); Mean Platelet Volume 12.9 fl (7.4-10.4); Platelet Count 261 10x3/uL (150-450); RBC Distribution Width 15.2 % (11.5-14.5); Red Blood Cell (RBC) Count 3.74 10x6/uL (3.90-5.03); White Blood Cell (WBC) Count 10.2 10x3/uL (3.5-10.5)
[2021-12-27 01:55] LABS: ALT (SGPT) 229 U/L (8-55); AST (SGOT) 70 U/L (5-34); Alkaline Phosphatase 69 U/L (40-110); Anion Gap 18 mmol/L (10-20); BUN (Urea Nitrogen) 76 mg/dL (9.8-20.1); Bilirubin, Total 1.8 mg/dL (0.2-1.2); Calc. Creatinine Clearance 28 mL/min (70-130); Calcium 9.6 mg/dL (7.8-10.44); Carbon Dioxide 24 mmol/L (23-31); Chloride 115 mmol/L (98-107); Estimated GFR 24; Globulin 3.5 g/dL (2.4-3.5); Glucose 130 mg/dL (80-115); MDiff Complete? YES; Magnesium 2.9 mg/dL (1.6-2.6); Potassium 4.3 mmol/L (3.5-5.1); Protein, Total 6.5 g/dL (5.8-8.1); Sodium 153 mmol/L (136-145)
[2021-12-27 01:59] LABS: Band 6 % (5-11); Lymphocytes 4 % (21-51); Metamyelocyte 1 % (0-0); Monocytes 5 % (0-10); Neutrophil 84 % (42-75)
[2021-12-27 02:00] LABS: Platelet Morphology Comment Appears Adequate; RBC Morphology Normal
[2021-12-27 02:27] LABS: Bilirubin Neg (Negative); Blood, Urine 10 (Negative); Clarity Cloudy (Clear); Glucose, Urine (Dipstick) Normal (Negative); Ketone, Urine 5 mg/dL (Negative); Leukocyte 500 (Negative); Nitrite Negative (Negative); Protein, Urine (Dipstick) 30 mg/dl (Neg-Trace); Specific Gravity, Urine 1.015 (1.002-1.036)
[2021-12-27 02:40] LABS: Bacteria/HPF 2+ HPF (None Seen); RBC/HPF 0-3 HPF (0-3); Squamous Epithelial 21-50 HPF (0-3); Urine Culture Reflex No No
[2021-12-27] MEDS ORDERED: D5 1/4 NS 500 ML IV SCH (02:45)
[2021-12-27] MEDS ORDERED: Albumin 25% 25 GM/100 ML BOT IVPB SCH (02:45)
[2021-12-27] MEDS ORDERED: DEXTROSE IVPB SCH (03:00)
[2021-12-27] MEDS ORDERED: AMIODARONE IVPB SCH (03:00)
[2021-12-27] MEDS ORDERED: Lidocaine 2% PF 100 mg/5 ml Syringe IVP SCH (03:30)
[2021-12-27] MEDS: Amiodarone In Dextrose 200 ML IVPB SCH ×2 (08:09→22:16)
[2021-12-27 08:45] LABS: Anion Gap 19 mmol/L (10-20); BUN (Urea Nitrogen) 82 mg/dL (9.8-20.1); Calc. Creatinine Clearance 26 mL/min (70-130); Calcium 9.5 mg/dL (7.8-10.44); Carbon Dioxide 21 mmol/L (23-31); Chloride 117 mmol/L (98-107); Estimated GFR 23; Glucose 150 mg/dL (80-115); Potassium 4.6 mmol/L (3.5-5.1); Sodium 152 mmol/L (136-145)
[2021-12-27] MEDS: TICAGRELOR 90 MG TABLET PO SCH ×2 (09:54→21:30)
[2021-12-27] MEDS: Colchicine 0.6 MG TAB PO SCH (09:54)
[2021-12-27] MEDS: Multivit, Therapeutic 1 TAB PO SCH (09:54)
[2021-12-27] MEDS: Folic Acid 1 MG TAB PO SCH (09:54)
[2021-12-27] MEDS: Aspirin Chewable 81 MG TAB PO SCH (09:54)
[2021-12-27] MEDS: Allopurinol 100 MG TAB PO SCH (09:54)
[2021-12-27] MEDS: Rivaroxaban 10 MG TAB PO SCH (11:32)
[2021-12-27] MEDS: Acetaminophen 500 MG TAB PO PRN (11:42)
[2021-12-27] MEDS: Melatonin 3 MG TAB PO SCH (21:30)
[2021-12-28 05:21] LABS: Hemoglobin 11.9 g/dL (12.0-15.5); Mean Corpuscular HGB CONC 33.2 g/dL (32.0-36.0); Mean Corpuscular Volume 99.2 fl (81.6-98.3); Mean Platelet Volume 13.4 fl (7.4-10.4); Platelet Count 253 10x3/uL (150-450); RBC Distribution Width 15.5 % (11.5-14.5); Red Blood Cell (RBC) Count 3.61 10x6/uL (3.90-5.03); White Blood Cell (WBC) Count 6.6 10x3/uL (3.5-10.5)
[2021-12-28 05:53] LABS: ALT (SGPT) 143 U/L (8-55); AST (SGOT) 49 U/L (5-34); Alkaline Phosphatase 65 U/L (40-110); Anion Gap 18 mmol/L (10-20); BUN (Urea Nitrogen) 68 mg/dL (9.8-20.1); Bilirubin, Total 1.2 mg/dL (0.2-1.2); Calc. Creatinine Clearance 37 mL/min (70-130); Calcium 9.3 mg/dL (7.8-10.44); Carbon Dioxide 24 mmol/L (23-31); Chloride 116 mmol/L (98-107); Estimated GFR 34; Globulin 3.4 g/dL (2.4-3.5); Glucose 116 mg/dL (80-115); Potassium 3.9 mmol/L (3.5-5.1); Protein, Total 6.4 g/dL (5.8-8.1); Sodium 154 mmol/L (136-145)
[2021-12-28] MEDS: Multivit, Therapeutic 1 TAB PO SCH (08:32)
[2021-12-28] MEDS: Aspirin Chewable 81 MG TAB PO SCH (08:32)
[2021-12-28] MEDS: Folic Acid 1 MG TAB PO SCH (08:32)
[2021-12-28] MEDS: Colchicine 0.6 MG TAB PO SCH (08:32)
[2021-12-28] MEDS: Rivaroxaban 10 MG TAB PO SCH (08:32)
[2021-12-28] MEDS: TICAGRELOR 90 MG TABLET PO SCH ×2 (08:33→20:41)
[2021-12-28] MEDS: Amiodarone 200 MG TAB PO SCH (08:33)
[2021-12-28] MEDS: Allopurinol 100 MG TAB PO SCH (08:33)
[2021-12-28] MEDS: Ondansetron PF 4 MG/2 ML Vial IVP PRN (19:30)
[2021-12-28] MEDS: Melatonin 3 MG TAB PO SCH (20:41)
[2021-12-29] MEDS: Amiodarone 200 MG TAB PO SCH (08:03)
[2021-12-29] MEDS: TICAGRELOR 90 MG TABLET PO SCH ×2 (08:03→20:37)
[2021-12-29] MEDS: Multivit, Therapeutic 1 TAB PO SCH (08:03)
[2021-12-29] MEDS: Allopurinol 100 MG TAB PO SCH (08:03)
[2021-12-29] MEDS: Aspirin Chewable 81 MG TAB PO SCH (08:03)
[2021-12-29] MEDS: Rivaroxaban 10 MG TAB PO SCH (08:03)
[2021-12-29] MEDS: Colchicine 0.6 MG TAB PO SCH (08:03)
[2021-12-29] MEDS: Folic Acid 1 MG TAB PO SCH (08:03)
[2021-12-29 10:07] LABS: Anion Gap 20 mmol/L (10-20); BUN (Urea Nitrogen) 62 mg/dL (9.8-20.1); Calc. Creatinine Clearance 41 mL/min (70-130); Calcium 9.3 mg/dL (7.8-10.44); Carbon Dioxide 17 mmol/L (23-31); Chloride 121 mmol/L (98-107); Estimated GFR 40; Glucose 135 mg/dL (80-115); Potassium 4.3 mmol/L (3.5-5.1); Sodium 154 mmol/L (136-145)
[2021-12-29] MEDS: Melatonin 3 MG TAB PO SCH (20:36)
[2021-12-30 03:24] LABS: Hemoglobin 12.3 g/dL (12.0-15.5); Mean Corpuscular Hemoglobin 32.5 pg (27.0-33.0); Mean Corpuscular Volume 101.3 fl (81.6-98.3); Mean Platelet Volume 12.9 fl (7.4-10.4); Platelet Count 251 10x3/uL (150-450); RBC Distribution Width 15.9 % (11.5-14.5); Red Blood Cell (RBC) Count 3.79 10x6/uL (3.90-5.03); White Blood Cell (WBC) Count 6.3 10x3/uL (3.5-10.5)
[2021-12-30 03:41] LABS: Anion Gap 17 mmol/L (10-20); BUN (Urea Nitrogen) 59 mg/dL (9.8-20.1); Calc. Creatinine Clearance 46 mL/min (70-130); Carbon Dioxide 23 mmol/L (23-31); Chloride 120 mmol/L (98-107); Estimated GFR 46; Glucose 104 mg/dL (80-115); Magnesium 2.4 mg/dL (1.6-2.6); Potassium 4.1 mmol/L (3.5-5.1); Sodium 156 mmol/L (136-145)
[2021-12-30] MEDS: Ondansetron ODT 4 MG TAB SL PRN (05:07)
[2021-12-30] MEDS: Amiodarone 200 MG TAB PO SCH (08:58)
[2021-12-30] MEDS: Aspirin Chewable 81 MG TAB PO SCH (08:58)
[2021-12-30] MEDS: Colchicine 0.6 MG TAB PO SCH (08:58)
[2021-12-30] MEDS: Multivit, Therapeutic 1 TAB PO SCH (08:59)
[2021-12-30] MEDS: TICAGRELOR 90 MG TABLET PO SCH ×2 (08:59→20:16)
[2021-12-30] MEDS: Sodium Chloride 0.9% 1,000 ML IV SCH (08:59)
[2021-12-30] MEDS: Folic Acid 1 MG TAB PO SCH (08:59)
[2021-12-30] MEDS: Allopurinol 100 MG TAB PO SCH (08:59)
[2021-12-30] MEDS: Enoxaparin Sodium 60 MG/0.6 ML SYRINGE SC SCH ×2 (09:05→20:16)
[2021-12-30] MEDS ORDERED: Fleet Enema 133 ML BOT PR SCH (09:30)
[2021-12-30] MEDS: ALPRAZolam 0.25 MG TAB PO PRN (20:16)
[2021-12-30] MEDS: Melatonin 3 MG TAB PO SCH (20:16)
[2021-12-31 03:44] LABS: Hemoglobin 11.3 g/dL (12.0-15.5); Mean Corpuscular HGB CONC 31.8 g/dL (32.0-36.0); Mean Corpuscular Hemoglobin 33.2 pg (27.0-33.0); Mean Corpuscular Volume 104.4 fl (81.6-98.3); Mean Platelet Volume 12.8 fl (7.4-10.4); Platelet Count 218 10x3/uL (150-450); RBC Distribution Width 15.9 % (11.5-14.5); White Blood Cell (WBC) Count 7.7 10x3/uL (3.5-10.5)
[2021-12-31 04:08] LABS: Anion Gap 16 mmol/L (10-20); BUN (Urea Nitrogen) 56 mg/dL (9.8-20.1); Calc. Creatinine Clearance 45 mL/min (70-130); Calcium 8.7 mg/dL (7.8-10.44); Carbon Dioxide 22 mmol/L (23-31); Chloride 119 mmol/L (98-107); Estimated GFR 46; Glucose 95 mg/dL (80-115); Potassium 4.1 mmol/L (3.5-5.1); Sodium 153 mmol/L (136-145)
[2021-12-31] MEDS: Sodium Chloride 0.9% 1,000 ML IV SCH (04:08)
[2021-12-31] MEDS: Midodrine HCl 5 MG TAB PO SCH ×4 (05:12→23:51)
[2021-12-31] MEDS: Allopurinol 100 MG TAB PO SCH (07:49)
[2021-12-31] MEDS: Amiodarone 200 MG TAB PO SCH (07:49)
[2021-12-31] MEDS: Folic Acid 1 MG TAB PO SCH (07:49)
[2021-12-31] MEDS: Multivit, Therapeutic 1 TAB PO SCH (07:50)
[2021-12-31] MEDS: TICAGRELOR 90 MG TABLET PO SCH ×2 (07:50→20:34)
[2021-12-31] MEDS: Aspirin Chewable 81 MG TAB PO SCH (07:50)
[2021-12-31] MEDS: Colchicine 0.6 MG TAB PO SCH (07:52)
[2021-12-31] MEDS: Enoxaparin Sodium 60 MG/0.6 ML SYRINGE SC SCH ×2 (07:53→20:34)
[2021-12-31] MEDS: Ondansetron PF 4 MG/2 ML Vial IVP PRN (08:16)
[2021-12-31] MEDS: Melatonin 3 MG TAB PO SCH (20:34)
[2021-12-31] MEDS: ALPRAZolam 0.25 MG TAB PO PRN (20:34)
[2022-01-01 05:26] LABS: Hemoglobin 9.1 g/dL (12.0-15.5); Mean Corpuscular HGB CONC 31.6 g/dL (32.0-36.0); Mean Corpuscular Hemoglobin 32.9 pg (27.0-33.0); Mean Platelet Volume 12.9 fl (7.4-10.4); Platelet Count 201 10x3/uL (150-450); RBC Distribution Width 15.5 % (11.5-14.5); Red Blood Cell (RBC) Count 2.77 10x6/uL (3.90-5.03); White Blood Cell (WBC) Count 8.1 10x3/uL (3.5-10.5)
[2022-01-01 05:49] LABS: Anion Gap 16 mmol/L (10-20); BUN (Urea Nitrogen) 59 mg/dL (9.8-20.1); Calc. Creatinine Clearance 46 mL/min (70-130); Calcium 8.3 mg/dL (7.8-10.44); Carbon Dioxide 23 mmol/L (23-31); Chloride 123 mmol/L (98-107); Estimated GFR 46; Glucose 85 mg/dL (80-115); Potassium 4.1 mmol/L (3.5-5.1); Sodium 158 mmol/L (136-145)
[2022-01-01] MEDS: Midodrine HCl 5 MG TAB PO SCH ×3 (06:00→17:28)
[2022-01-01] MEDS: Ondansetron PF 4 MG/2 ML Vial IVP PRN ×2 (08:34→18:29)
[2022-01-01] MEDS: Multivit, Therapeutic 1 TAB PO SCH (09:36)
[2022-01-01] MEDS: Colchicine 0.6 MG TAB PO SCH (09:36)
[2022-01-01] MEDS: Allopurinol 100 MG TAB PO SCH (09:36)
[2022-01-01] MEDS: Sodium Chloride 0.9% 1,000 ML IV SCH (10:55)
[2022-01-01] MEDS: Enoxaparin Sodium 60 MG/0.6 ML SYRINGE SC SCH ×2 (10:56→20:49)
[2022-01-01] MEDS: Amiodarone 200 MG TAB PO SCH (11:03)
[2022-01-01] MEDS: TICAGRELOR 90 MG TABLET PO SCH ×2 (11:03→20:50)
[2022-01-01] MEDS: Aspirin Chewable 81 MG TAB PO SCH (11:03)
[2022-01-01] MEDS ORDERED: Enoxaparin Sodium 60 MG/0.6 ML SYRINGE SC SCH (11:15)
[2022-01-01] MEDS: Dextrose 5% in Water 1,000 ML IV SCH (17:28)
[2022-01-01] MEDS: ALPRAZolam 0.25 MG TAB PO PRN (20:50)
[2022-01-01] MEDS: Melatonin 3 MG TAB PO SCH (20:50)
[2022-01-02] MEDS: Midodrine HCl 5 MG TAB PO SCH ×4 (01:14→13:24)
[2022-01-02 03:48] LABS: Hemoglobin 9.4 g/dL (12.0-15.5); Mean Corpuscular HGB CONC 31.8 g/dL (32.0-36.0); Mean Corpuscular Hemoglobin 33.1 pg (27.0-33.0); Mean Corpuscular Volume 104.2 fl (81.6-98.3); Mean Platelet Volume 13.4 fl (7.4-10.4); Platelet Count 208 10x3/uL (150-450); RBC Distribution Width 15.9 % (11.5-14.5); Red Blood Cell (RBC) Count 2.84 10x6/uL (3.90-5.03); White Blood Cell (WBC) Count 8.9 10x3/uL (3.5-10.5)
[2022-01-02 04:06] LABS: ALT (SGPT) 142 U/L (8-55); AST (SGOT) 192 U/L (5-34); Albumin 3.2 g/dL (3.4-4.8); Alkaline Phosphatase 96 U/L (40-110); Anion Gap 18 mmol/L (10-20); BUN (Urea Nitrogen) 56 mg/dL (9.8-20.1); Bilirubin, Total 1.3 mg/dL (0.2-1.2); Calc. Creatinine Clearance 46 mL/min (70-130); Calcium 8.7 mg/dL (7.8-10.44); Carbon Dioxide 21 mmol/L (23-31); Chloride 122 mmol/L (98-107); Estimated GFR 46; Globulin 3.3 g/dL (2.4-3.5); Glucose 110 mg/dL (80-115); Potassium 3.9 mmol/L (3.5-5.1); Protein, Total 6.5 g/dL (5.8-8.1); Sodium 157 mmol/L (136-145)
[2022-01-02 06:04] LABS: MDiff Complete? YES; Manual Diff?? YES
[2022-01-02 06:23] LABS: Band 6 % (5-11); Eosinophils 2 % (0-10); Lymphocytes 9 % (21-51); Monocytes 4 % (0-10); Neutrophil 77 % (42-75); Nucleated RBC 3 % (0); Platelet Morphology Comment Appears Adequate; Reactive Lymphocytes 1 % (0-10)
[2022-01-02 06:24] LABS: Anisocytosis SLIGHT = 6-15 cells (100X) (0-5/hpf)
[2022-01-02 06:25] LABS: Howell Jolly Bodies SLIGHT = 1-2 cells (100X) (None Seen); Hypochromia SLIGHT = 6-15 cells (100X) (0-5/hpf); Macrocytosis SLIGHT = 6-15 cells (100X) (0-5/hpf); Microcytosis SLIGHT = 6-15 cells (100X) (0-5/hpf); Polychromasia SLIGHT = 2-3 cells (100X) (0-2/hpf); Schistocytes SLIGHT = 2-5 cells (100X) (0-1/hpf)
[2022-01-02] MEDS: Multivit, Therapeutic 1 TAB PO SCH (07:34)
[2022-01-02] MEDS: Folic Acid 1 MG TAB PO SCH (07:34)
[2022-01-02] MEDS: Allopurinol 100 MG TAB PO SCH (07:34)
[2022-01-02] MEDS: Amiodarone 200 MG TAB PO SCH (07:35)
[2022-01-02] MEDS: Aspirin Chewable 81 MG TAB PO SCH (07:35)
[2022-01-02] MEDS: ALPRAZolam 0.25 MG TAB PO PRN ×2 (07:35→20:48)
[2022-01-02] MEDS: Colchicine 0.6 MG TAB PO SCH (07:36)
[2022-01-02] MEDS: Enoxaparin Sodium 60 MG/0.6 ML SYRINGE SC SCH (07:36)
[2022-01-02] MEDS: TICAGRELOR 90 MG TABLET PO SCH ×2 (07:38→20:49)
[2022-01-02] MEDS: Dextrose 5% in Water 1,000 ML IV SCH (13:25)
[2022-01-02] MEDS: Melatonin 3 MG TAB PO SCH (20:48)
[2022-01-03 04:32] LABS: #Basophils 0.1 10x3/uL (0.0-0.2); #Eosinphils 0.1 10x3/uL (0.0-0.5); #Monocytes 0.6 10x3/uL (0.0-1.1); #Neutrophils 7.4 10x3/uL (1.5-8.4); %Basophils 0.7 % (0.0-2.0); %Eosinophils 0.8 % (0.0-6.0); %Lymphocytes 9.5 % (18.0-47.0); %Monocytes 6.1 % (0.0-10.0); %Neutrophils 81.9 % (40.0-75.0); Hemoglobin 8.1 g/dL (12.0-15.5); Mean Corpuscular HGB CONC 30.8 g/dL (32.0-36.0); Mean Corpuscular Hemoglobin 33.3 pg (27.0-33.0); Mean Corpuscular Volume 108.2 fl (81.6-98.3); Mean Platelet Volume 13.9 fl (7.4-10.4); Platelet Count 190 10x3/uL (150-450); RBC Distribution Width 15.6 % (11.5-14.5); Red Blood Cell (RBC) Count 2.43 10x6/uL (3.90-5.03)
[2022-01-03 04:39] LABS: ALT (SGPT) 196 U/L (8-55); AST (SGOT) 243 U/L (5-34); Albumin 3.1 g/dL (3.4-4.8); Alkaline Phosphatase 102 U/L (40-110); Anion Gap 16 mmol/L (10-20); BUN (Urea Nitrogen) 48 mg/dL (9.8-20.1); Bilirubin, Total 1.3 mg/dL (0.2-1.2); Calc. Creatinine Clearance 45 mL/min (70-130); Calcium 8.7 mg/dL (7.8-10.44); Carbon Dioxide 22 mmol/L (23-31); Chloride 120 mmol/L (98-107); Estimated GFR 44; Globulin 3.2 g/dL (2.4-3.5); Glucose 114 mg/dL (80-115); Potassium 4.1 mmol/L (3.5-5.1); Protein, Total 6.3 g/dL (5.8-8.1); Sodium 154 mmol/L (136-145)
[2022-01-03] MEDS: TICAGRELOR 90 MG TABLET PO SCH ×2 (08:19→20:42)
[2022-01-03] MEDS: Aspirin Chewable 81 MG TAB PO SCH (08:19)
[2022-01-03] MEDS: Colchicine 0.6 MG TAB PO SCH (08:19)
[2022-01-03] MEDS: Amiodarone 200 MG TAB PO SCH (08:19)
[2022-01-03] MEDS: Multivit, Therapeutic 1 TAB PO SCH (08:20)
[2022-01-03] MEDS: Allopurinol 100 MG TAB PO SCH (08:20)
[2022-01-03] MEDS: Folic Acid 1 MG TAB PO SCH (08:20)
[2022-01-03] MEDS: Dextrose 5% in Water 1,000 ML IV SCH (09:49)
[2022-01-03] MEDS ORDERED: Enoxaparin Sodium 80 MG/0.8 ML SYRINGE SC SCH ×2 (11:00→21:00)
[2022-01-03] MEDS ORDERED: Enoxaparin Sodium 80 MG/0.8 ML SYRINGE ONE (11:08)
[2022-01-03] MEDS ORDERED: Vancomycin 1.5 GRAM/300 ML BAG IVPB SCH (12:00)
[2022-01-03] MEDS: ALPRAZolam 0.25 MG TAB PO PRN (13:57)
[2022-01-03] MEDS ORDERED: Iron Sucrose Complex 200 MG in Sodium Chloride 0.9% 100 ML IVPB SCH (19:15)
[2022-01-03] MEDS: Melatonin 3 MG TAB PO SCH (20:42)
[2022-01-03] MEDS: Enoxaparin Sodium 40 MG/0.4 ML SYRINGE SC SCH (20:42)
[2022-01-03] MEDS ORDERED: Iron, Sodium Ferric Gluconate 250 MG in Sodium Chloride 0.9% 250 ML 250 ML IVPB SCH (23:00)
[2022-01-03] MEDS: EPOETIN ALFA-EPBX (NON-ESRD) 10,000 UNIT/ML VIAL SC SCH (23:01)
[2022-01-04] MEDS ORDERED: Furosemide 40 MG/4 ML VIAL ONE (03:41)
[2022-01-04] MEDS ORDERED: Furosemide 20 MG/2 ML VIAL SLOW IVP SCH (03:45)
[2022-01-04 05:25] LABS: ALT (SGPT) 158 U/L (8-55); AST (SGOT) 150 U/L (5-34); Alkaline Phosphatase 113 U/L (40-110); Anion Gap 17 mmol/L (10-20); BUN (Urea Nitrogen) 46 mg/dL (9.8-20.1); Bilirubin, Total 1.2 mg/dL (0.2-1.2); Calc. Creatinine Clearance 39 mL/min (70-130); Calcium 8.5 mg/dL (7.8-10.44); Carbon Dioxide 22 mmol/L (23-31); Chloride 115 mmol/L (98-107); Estimated GFR 37; Globulin 3.1 g/dL (2.4-3.5); Glucose 112 mg/dL (80-115); Protein, Total 6.1 g/dL (5.8-8.1); Sodium 150 mmol/L (136-145)
[2022-01-04 05:27] LABS: Hemoglobin 8.3 g/dL (12.0-15.5); Mean Corpuscular HGB CONC 32.2 g/dL (32.0-36.0); Mean Corpuscular Hemoglobin 34.7 pg (27.0-33.0); Mean Corpuscular Volume 107.9 fl (81.6-98.3); Mean Platelet Volume 14.9 fl (7.4-10.4); Platelet Count 178 10x3/uL (150-450); RBC Distribution Width 15.8 % (11.5-14.5); Red Blood Cell (RBC) Count 2.39 10x6/uL (3.90-5.03); White Blood Cell (WBC) Count 8.4 10x3/uL (3.5-10.5)
[2022-01-04 07:02] LABS: Anisocytosis SLIGHT = 6-15 cells (100X) (0-5/hpf); Hypochromia SLIGHT = 6-15 cells (100X) (0-5/hpf); MDiff Complete? YES; Macrocytosis SLIGHT = 6-15 cells (100X) (0-5/hpf); Microcytosis SLIGHT = 6-15 cells (100X) (0-5/hpf); Platelet Morphology Comment Appears Adequate; Poikilocytosis MODERATE=16-30 cells (100X) (0-5/hpf)
[2022-01-04 07:04] LABS: Band 3 % (5-11); Lymphocytes 7 % (21-51); Metamyelocyte 1 % (0-0); Monocytes 6 % (0-10); Neutrophil 82 % (42-75); Nucleated RBC 4 % (0); Reactive Lymphocytes 1 % (0-10)
[2022-01-04] MEDS: Amiodarone 200 MG TAB PO SCH (08:53)
[2022-01-04] MEDS: Allopurinol 100 MG TAB PO SCH (08:53)
[2022-01-04] MEDS: Aspirin Chewable 81 MG TAB PO SCH (08:54)
[2022-01-04] MEDS: Colchicine 0.6 MG TAB PO SCH (08:54)
[2022-01-04] MEDS: Folic Acid 1 MG TAB PO SCH (08:55)
[2022-01-04] MEDS: Multivit, Therapeutic 1 TAB PO SCH (08:55)
[2022-01-04] MEDS: TICAGRELOR 90 MG TABLET PO SCH ×2 (08:56→20:30)
[2022-01-04] MEDS ORDERED: Docusate 100 MG CAP PO SCH ×2 (12:45→13:45)
[2022-01-04] MEDS: Melatonin 3 MG TAB PO SCH (20:30)
[2022-01-04] MEDS: Enoxaparin Sodium 40 MG/0.4 ML SYRINGE SC SCH (20:30)
[2022-01-04] MEDS: ALPRAZolam 0.25 MG TAB PO PRN (22:58)
[2022-01-05 04:52] LABS: Hemoglobin 7.7 g/dL (12.0-15.5); Mean Corpuscular HGB CONC 31.7 g/dL (32.0-36.0); Mean Corpuscular Hemoglobin 33.6 pg (27.0-33.0); Mean Corpuscular Volume 106.1 fl (81.6-98.3); Mean Platelet Volume 15.2 fl (7.4-10.4); Platelet Count 188 10x3/uL (150-450); RBC Distribution Width 17.3 % (11.5-14.5); Red Blood Cell (RBC) Count 2.29 10x6/uL (3.90-5.03)
[2022-01-05 04:59] LABS: ALT (SGPT) 124 U/L (8-55); AST (SGOT) 124 U/L (5-34); Albumin 2.8 g/dL (3.4-4.8); Alkaline Phosphatase 124 U/L (40-110); Anion Gap 18 mmol/L (10-20); BUN (Urea Nitrogen) 47 mg/dL (9.8-20.1); Bilirubin, Total 1.4 mg/dL (0.2-1.2); Calc. Creatinine Clearance 36 mL/min (70-130); Calcium 8.4 mg/dL (7.8-10.44); Carbon Dioxide 22 mmol/L (23-31); Chloride 116 mmol/L (98-107); Estimated GFR 34; Glucose 92 mg/dL (80-115); Potassium 3.5 mmol/L (3.5-5.1); Protein, Total 5.8 g/dL (5.8-8.1); Sodium 152 mmol/L (136-145)
[2022-01-05 06:42] LABS: MDiff Complete? YES
[2022-01-05 06:43] LABS: Anisocytosis SLIGHT = 6-15 cells (100X) (0-5/hpf); Hypochromia SLIGHT = 6-15 cells (100X) (0-5/hpf); Poikilocytosis SLIGHT = 6-15 cells (100X) (0-5/hpf)
[2022-01-05 07:15] LABS: Platelet Morphology Comment Appears Adequate; Polychromasia SLIGHT = 2-3 cells (100X) (0-2/hpf); Schistocytes SLIGHT = 2-5 cells (100X) (0-1/hpf)
[2022-01-05 07:20] LABS: Band 9 % (5-11); Lymphocytes 10 % (21-51); Metamyelocyte 3 % (0-0); Monocytes 8 % (0-10); Neutrophil 70 % (42-75); Nucleated RBC 6 % (0)
[2022-01-05 07:21] LABS: Macrocytosis SLIGHT = 6-15 cells (100X) (0-5/hpf); Microcytosis SLIGHT = 6-15 cells (100X) (0-5/hpf)
[2022-01-05] MEDS: Colchicine 0.6 MG TAB PO SCH (09:20)
[2022-01-05] MEDS: Amiodarone 200 MG TAB PO SCH (09:20)
[2022-01-05] MEDS: Multivit, Therapeutic 1 TAB PO SCH (09:20)
[2022-01-05] MEDS: TICAGRELOR 90 MG TABLET PO SCH ×2 (09:20→21:50)
[2022-01-05] MEDS: Aspirin Chewable 81 MG TAB PO SCH (09:20)
[2022-01-05] MEDS: Allopurinol 100 MG TAB PO SCH (09:20)
[2022-01-05] MEDS: Folic Acid 1 MG TAB PO SCH (09:20)
[2022-01-05] MEDS: Docusate 100 MG CAP PO SCH (09:21)
[2022-01-05] MEDS ORDERED: Potassium Chloride 20 MEQ TAB PO SCH (12:15)
[2022-01-05] MEDS: Nystatin 500,000 UNITS/5 ML UDCUP SSW SCH ×4 (13:46→22:11)
[2022-01-05] MEDS: Ondansetron PF 4 MG/2 ML Vial IVP PRN (17:05)
[2022-01-05 17:08] LABS: Actual Bicarbonate (HCO3a) 23.7 mEq/L (22-28); Base Excess (BEa) -0.6 mEq/L (-2.0 to +3.0); CO2 Tension 37.4 mmHg (35.0-45.0); Calcium, Ionized (arterial) 1.12 mmol/L (1.12-1.30); Carboxyhemoglobin (COHb) 0.3 gm% (0.0-3.0); Hemoglobin (Hb) 7.8 g/dL (12.0-16.0); O2 Tension (PaO2), arterial 57.8 mmHg (> 80.0); Potassium - ABG Lab 3.7 mmol/L (3.70-5.30); Puncture Site RRA; pH, Arterial 7.42 (7.35-7.45)
[2022-01-05] MEDS ORDERED: Furosemide 40 MG/4 ML VIAL ONE (17:23)
[2022-01-05] MEDS ORDERED: Furosemide 40 MG/4 ML VIAL SLOW IVP SCH (18:15)
[2022-01-05 18:49] LABS: Anion Gap 20 mmol/L (10-20); BUN (Urea Nitrogen) 49 mg/dL (9.8-20.1); Calc. Creatinine Clearance 35 mL/min (70-130); Calcium 8.7 mg/dL (7.8-10.44); Carbon Dioxide 20 mmol/L (23-31); Chloride 115 mmol/L (98-107); Estimated GFR 32; Glucose 111 mg/dL (80-115); Potassium 3.7 mmol/L (3.5-5.1); Sodium 151 mmol/L (136-145)
[2022-01-05 18:52] LABS: ALT (SGPT) 121 U/L (8-55); AST (SGOT) 139 U/L (5-34); Alkaline Phosphatase 132 U/L (40-110); Bilirubin, Direct 0.9 mg/dL (0.1-0.3); Bilirubin, Total 1.5 mg/dL (0.2-1.2); Protein, Total 6.1 g/dL (5.8-8.1)
[2022-01-05 19:27] LABS: SARS-CoV-2 NAA Rapid Test Not Detected (NotDetected)
[2022-01-05 19:52] LABS: Bilirubin, Direct 0.9 mg/dL (0.1-0.3); Magnesium 2.2 mg/dL (1.6-2.6)
[2022-01-05] MEDS ORDERED: Vancomycin HCl 1 GM in Sodium Chloride 0.9% 250 ML 250 ML IVPB SCH (20:00)
[2022-01-05] MEDS ORDERED: Cefepime 2 GM in Sodium Chloride 0.9% 100 ML IVPB SCH (21:00)
[2022-01-05] MEDS ORDERED: Sodium Chloride 0.9% 100 ML ONE (21:39)
[2022-01-05] MEDS: ALPRAZolam 0.25 MG TAB PO PRN (21:50)
[2022-01-05] MEDS: Melatonin 3 MG TAB PO SCH (21:50)
[2022-01-05] MEDS: Enoxaparin Sodium 40 MG/0.4 ML SYRINGE SC SCH (22:11)
[2022-01-05] MEDS ORDERED: Haloperidol Lactate 5 MG/ML VIAL IM SCH (23:45)
[2022-01-06 01:50] LABS: Legionella Urinary Ag Negative (Negative); Strep pneumo Urine Ag NEGATIVE (NEGATIVE)
[2022-01-06] MEDS ORDERED: Morphine 2 MG/ML VIAL SLOW IVP SCH (02:00)
[2022-01-06] MEDS ORDERED: Sterile Water 10 ML VIAL FS PRN (02:00)
[2022-01-06] MEDS ORDERED: Ziprasidone 20 MG VIAL IM SCH (02:00)
[2022-01-06 05:53] LABS: ALT (SGPT) 108 U/L (8-55); AST (SGOT) 140 U/L (5-34); Albumin 2.8 g/dL (3.4-4.8); Alkaline Phosphatase 130 U/L (40-110); Anion Gap 21 mmol/L (10-20); BUN (Urea Nitrogen) 49 mg/dL (9.8-20.1); Bilirubin, Total 1.4 mg/dL (0.2-1.2); Calc. Creatinine Clearance 34 mL/min (70-130); Calcium 8.4 mg/dL (7.8-10.44); Carbon Dioxide 18 mmol/L (23-31); Chloride 120 mmol/L (98-107); Estimated GFR 32; Globulin 3.3 g/dL (2.4-3.5); Glucose 89 mg/dL (80-115); Magnesium 2.1 mg/dL (1.6-2.6); Potassium 3.7 mmol/L (3.5-5.1); Protein, Total 6.1 g/dL (5.8-8.1); Sodium 155 mmol/L (136-145)
[2022-01-06] MEDS: Furosemide 40 MG/4 ML VIAL SLOW IVP SCH ×2 (06:02→17:03)
[2022-01-06 06:04] LABS: Free T4 (Free Thyroxine) 0.67 ng/dL (0.70-1.48); Thyroid Stimulating Hormone 8.1101 uIU/mL (0.35-4.94)
[2022-01-06 06:23] LABS: Hemoglobin 9.9 g/dL (12.0-15.5); Mean Corpuscular HGB CONC 33.7 g/dL (32.0-36.0); Mean Corpuscular Hemoglobin 33.3 pg (27.0-33.0); Platelet Count 152 10x3/uL (150-450); RBC Distribution Width 19.2 % (11.5-14.5); Red Blood Cell (RBC) Count 2.97 10x6/uL (3.90-5.03); White Blood Cell (WBC) Count 7.2 10x3/uL (3.5-10.5)
[2022-01-06 06:31] LABS: MDiff Complete? YES
[2022-01-06 06:33] LABS: Anisocytosis SLIGHT = 6-15 cells (100X) (0-5/hpf); Hypochromia SLIGHT = 6-15 cells (100X) (0-5/hpf); Platelet Morphology Comment Appears Adequate; Poikilocytosis SLIGHT = 6-15 cells (100X) (0-5/hpf); Polychromasia SLIGHT = 2-3 cells (100X) (0-2/hpf)
[2022-01-06 06:41] LABS: Band 9 % (5-11); Eosinophils 2 % (0-10); Lymphocytes 9 % (21-51); Metamyelocyte 4 % (0-0); Monocytes 7 % (0-10); Neutrophil 67 % (42-75); Nucleated RBC 14 % (0)
[2022-01-06 06:59] LABS: Reflex for Review?? YES
[2022-01-06 08:59] LABS: Actual Bicarbonate (HCO3v) 24 mEq/L (22-28); Base Excess 0.8 mEq/L (-2.0 to +3.0); Calcium, Ionized (venous) 1.09 mmol/L (1.16-1.32); Chloride (VBG) 117 mmol/L (98-106); Hemoglobin (Hb) 9.8 g/dL (11.7-16.0); Potassium (VBG) 3.27 mmol/L (3.70-5.30); Puncture Site RRA; Sodium 148.3 mmol/L (133-146); pH (venous) 7.46 (7.32-7.43)
[2022-01-06] MEDS: TICAGRELOR 90 MG TABLET PO SCH ×2 (09:12→20:44)
[2022-01-06] MEDS: Colchicine 0.6 MG TAB PO SCH (09:12)
[2022-01-06] MEDS: Amiodarone 200 MG TAB PO SCH (09:12)
[2022-01-06] MEDS: Folic Acid 1 MG TAB PO SCH (09:19)
[2022-01-06] MEDS: Nystatin 500,000 UNITS/5 ML UDCUP SSW SCH ×4 (09:19→20:44)
[2022-01-06] MEDS: Allopurinol 100 MG TAB PO SCH (09:19)
[2022-01-06] MEDS: Aspirin Chewable 81 MG TAB PO SCH (09:19)
[2022-01-06] MEDS: Multivit, Therapeutic 1 TAB PO SCH (09:19)
[2022-01-06] MEDS: Docusate 100 MG CAP PO SCH (09:19)
[2022-01-06] MEDS ORDERED: Dextrose 5 %-0.45 % NaCl 1,000 ML IV SCH (10:00)
[2022-01-06] MEDS ORDERED: D5 1/4 NS 500 ML IV SCH (10:15)
[2022-01-06] MEDS: D5 1/4 NS 1,000 ML IV SCH (13:00)
[2022-01-06] MEDS ORDERED: Vancomycin HCl 1 GM in Sodium Chloride 0.9% 250 ML 250 ML IVPB SCH (15:00)
[2022-01-06] MEDS: Melatonin 3 MG TAB PO SCH (20:43)
[2022-01-06] MEDS: Cefepime 1 GM in Sodium Chloride 0.9% 100 ML IVPB SCH (20:44)
[2022-01-06] MEDS: Enoxaparin Sodium 80 MG/0.8 ML SYRINGE SC SCH (20:44)
[2022-01-07 05:24] LABS: Iron 50 ug/dL (50-170); Iron Binding Capacity, Total 221 mcg/dL (265-497)
[2022-01-07] MEDS: Furosemide 40 MG/4 ML VIAL SLOW IVP SCH ×2 (05:54→18:21)
[2022-01-07] MEDS: Nystatin Powder 15 GM BOT TOP PRN (08:28)
[2022-01-07] MEDS: Amiodarone 200 MG TAB PO SCH (08:34)
[2022-01-07] MEDS: Nystatin 500,000 UNITS/5 ML UDCUP SSW SCH ×4 (08:34→21:23)
[2022-01-07] MEDS: Docusate 100 MG CAP PO SCH (08:35)
[2022-01-07] MEDS: Colchicine 0.6 MG TAB PO SCH ×2 (08:35→08:36)
[2022-01-07] MEDS: Multivit, Therapeutic 1 TAB PO SCH (08:35)
[2022-01-07] MEDS: Aspirin Chewable 81 MG TAB PO SCH (08:35)
[2022-01-07] MEDS: Folic Acid 1 MG TAB PO SCH (08:35)
[2022-01-07] MEDS: Allopurinol 100 MG TAB PO SCH (08:35)
[2022-01-07] MEDS: TICAGRELOR 90 MG TABLET PO SCH ×2 (08:36→21:33)
[2022-01-07] MEDS: Enoxaparin Sodium 80 MG/0.8 ML SYRINGE SC SCH (08:36)
[2022-01-07] MEDS ORDERED: Vancomycin HCl 750 MG in Sodium Chloride 0.9% 250 ML 250 ML IVPB SCH (09:00)
[2022-01-07 09:24] LABS: Vancomycin, Trough 30.5 ug/mL
[2022-01-07] MEDS: D5 1/4 NS 1,000 ML IV SCH (10:39)
[2022-01-07 11:57] LABS: ALT (SGPT) 104 U/L (8-55); AST (SGOT) 180 U/L (5-34); Albumin 2.8 g/dL (3.4-4.8); Alkaline Phosphatase 138 U/L (40-110); Anion Gap 16 mmol/L (10-20); BUN (Urea Nitrogen) 54 mg/dL (9.8-20.1); Bilirubin, Total 1.6 mg/dL (0.2-1.2); Calc. Creatinine Clearance 31 mL/min (70-130); Calcium 8.2 mg/dL (7.8-10.44); Carbon Dioxide 29 mmol/L (23-31); Chloride 110 mmol/L (98-107); Estimated GFR 28; Globulin 3.2 g/dL (2.4-3.5); Glucose 121 mg/dL (80-115); Sodium 152 mmol/L (136-145)
[2022-01-07 11:59] LABS: Potassium 2.7 mmol/L (3.5-5.1)
[2022-01-07] MEDS: Ondansetron PF 4 MG/2 ML Vial IVP PRN (14:16)
[2022-01-07] MEDS: Potassium Bicarbonate/Cit Ac 20 MEQ TAB PER TUBE SCH ×2 (18:21→21:22)
[2022-01-07] MEDS ORDERED: Potassium Bicarbonate/Cit Ac 20 MEQ TAB PER TUBE SCH (21:00)
[2022-01-07] MEDS: Cefepime 1 GM in Sodium Chloride 0.9% 100 ML IVPB SCH (21:29)
[2022-01-07] MEDS: Lansoprazole 3 MG/ML ORAL SUSPENSION PER TUBE SCH (21:31)
[2022-01-07] MEDS: Melatonin 3 MG TAB PO SCH (21:31)
[2022-01-08] MEDS ORDERED: Potassium Bicarbonate/Cit Ac 20 MEQ TAB PER TUBE SCH (01:00)
[2022-01-08 05:09] LABS: Hemoglobin 9.5 g/dL (12.0-15.5); Mean Corpuscular HGB CONC 33.5 g/dL (32.0-36.0); Mean Corpuscular Hemoglobin 33.5 pg (27.0-33.0); Platelet Count 147 10x3/uL (150-450); RBC Distribution Width 18.8 % (11.5-14.5); Red Blood Cell (RBC) Count 2.84 10x6/uL (3.90-5.03); White Blood Cell (WBC) Count 3.2 10x3/uL (3.5-10.5)
[2022-01-08] MEDS: Furosemide 40 MG/4 ML VIAL SLOW IVP SCH ×2 (05:29→09:23)
[2022-01-08 05:49] LABS: Anion Gap 18 mmol/L (10-20); BUN (Urea Nitrogen) 63 mg/dL (9.8-20.1); Calc. Creatinine Clearance 30 mL/min (70-130); Calcium 8.3 mg/dL (7.8-10.44); Carbon Dioxide 34 mmol/L (23-31); Chloride 107 mmol/L (98-107); Estimated GFR 28; Glucose 97 mg/dL (80-115); Potassium 4.8 mmol/L (3.5-5.1); Sodium 154 mmol/L (136-145)
[2022-01-08 06:00] LABS: MDiff Complete? YES
[2022-01-08 06:10] LABS: Band 6 % (5-11); Lymphocytes 17 % (21-51); Metamyelocyte 10 % (0-0); Monocytes 6 % (0-10); Myelocyte 5 % (0-0); Neutrophil 55 % (42-75); Nucleated RBC 15 % (0); Reactive Lymphocytes 1 % (0-10)
[2022-01-08 06:14] LABS: Macrocytosis SLIGHT = 6-15 cells (100X) (0-5/hpf); Microcytosis SLIGHT = 6-15 cells (100X) (0-5/hpf); Platelet Morphology Comment Appears Adequate; Polychromasia SLIGHT = 2-3 cells (100X) (0-2/hpf)
[2022-01-08] MEDS ORDERED: Enoxaparin Sodium 80 MG/0.8 ML SYRINGE SC SCH (09:00)
[2022-01-08] MEDS ORDERED: Vancomycin HCl 750 MG in Sodium Chloride 0.9% 250 ML 250 ML IVPB SCH (09:00)
[2022-01-08] MEDS ORDERED: Pantoprazole 40 MG GRANULES PACKET PER TUBE SCH (09:00)
[2022-01-08] MEDS: Colchicine 0.6 MG TAB PO SCH (09:22)
[2022-01-08] MEDS: Aspirin Chewable 81 MG TAB PO SCH (09:22)
[2022-01-08] MEDS: Nystatin 500,000 UNITS/5 ML UDCUP SSW SCH ×4 (09:22→21:57)
[2022-01-08] MEDS: Docusate 100 MG CAP PO SCH (09:22)
[2022-01-08] MEDS: Amiodarone 200 MG TAB PO SCH (09:22)
[2022-01-08] MEDS: Allopurinol 100 MG TAB PO SCH (09:22)
[2022-01-08] MEDS: Multivit, Therapeutic 1 TAB PO SCH (09:22)
[2022-01-08] MEDS: Folic Acid 1 MG TAB PO SCH (09:22)
[2022-01-08] MEDS: TICAGRELOR 90 MG TABLET PO SCH (09:23)
[2022-01-08] MEDS: Apixaban 5 MG TAB PO SCH ×2 (09:23→21:57)
[2022-01-08] MEDS ORDERED: Sodium Chloride 0.45% 250 ML IV SCH (11:30)
[2022-01-08] MEDS: Cefepime 1 GM in Sodium Chloride 0.9% 100 ML IVPB SCH (21:57)
[2022-01-08] MEDS: Melatonin 3 MG TAB PO SCH (21:57)
[2022-01-08] MEDS: Lansoprazole 3 MG/ML ORAL SUSPENSION PER TUBE SCH (22:13)
[2022-01-08] MEDS: Nystatin Powder 15 GM BOT TOP PRN (22:14)
[2022-01-09] MEDS: ALPRAZolam 0.25 MG TAB PO PRN (04:27)
[2022-01-09] MEDS: Acetaminophen 500 MG TAB PO PRN (05:48)
[2022-01-09 05:49] LABS: Hemoglobin 7.7 g/dL (12.0-15.5); Mean Corpuscular HGB CONC 32.8 g/dL (32.0-36.0); Mean Corpuscular Hemoglobin 32.8 pg (27.0-33.0); Platelet Count 126 10x3/uL (150-450); RBC Distribution Width 17.8 % (11.5-14.5); Red Blood Cell (RBC) Count 2.35 10x6/uL (3.90-5.03); White Blood Cell (WBC) Count 1.9 10x3/uL (3.5-10.5)
[2022-01-09 05:55] LABS: Anion Gap 18 mmol/L (10-20); BUN (Urea Nitrogen) 85 mg/dL (9.8-20.1); Calc. Creatinine Clearance 30 mL/min (70-130); Carbon Dioxide 35 mmol/L (23-31); Chloride 103 mmol/L (98-107); Estimated GFR 28; Glucose 97 mg/dL (80-115); Sodium 152 mmol/L (136-145)
[2022-01-09] MEDS ORDERED: Bisacodyl 10 MG SUPP PR SCH (06:15)
[2022-01-09 06:31] LABS: MDiff Complete? YES
[2022-01-09 06:45] LABS: Lymphocytes 24 % (21-51); Monocytes 2 % (0-10); Neutrophil 62 % (42-75); Nucleated RBC 16 % (0)
[2022-01-09 06:49] LABS: Large Platelets MARKED
[2022-01-09 06:50] LABS: Anisocytosis MARKED = >30 cells (100X) (0-5/hpf); Hypochromia MODERATE=16-30 cells (100X) (0-5/hpf); Microcytosis MODERATE=15-30 cells (100X) (0-5/hpf); Platelet Morphology Comment Appears Adequate; Polychromasia MODERATE = 3-4 cells (100X) (0-2/hpf)
[2022-01-09] MEDS: Folic Acid 1 MG TAB PO SCH (09:07)
[2022-01-09] MEDS: Colchicine 0.6 MG TAB PO SCH (09:07)
[2022-01-09] MEDS: Amiodarone 200 MG TAB PO SCH (09:07)
[2022-01-09] MEDS: Nystatin 500,000 UNITS/5 ML UDCUP SSW SCH ×4 (09:08→22:05)
[2022-01-09] MEDS: Apixaban 5 MG TAB PO SCH ×2 (09:08→19:59)
[2022-01-09] MEDS: Clopidogrel Bisulfate 75 MG TAB PO SCH (09:08)
[2022-01-09] MEDS: Polyethylene Glycol 3350 17 GM Packet PO SCH (09:08)
[2022-01-09] MEDS: Furosemide 40 MG/4 ML VIAL SLOW IVP SCH (09:46)
[2022-01-09] MEDS: Multivit, Therapeutic 1 TAB PO SCH (10:22)
[2022-01-09] MEDS: Docusate 100 MG CAP PO SCH (10:22)
[2022-01-09] MEDS: Allopurinol 100 MG TAB PO SCH (10:23)
[2022-01-09] MEDS: Nystatin Powder 15 GM BOT TOP PRN (15:22)
[2022-01-09] MEDS: Cefepime 1 GM in Sodium Chloride 0.9% 100 ML IVPB SCH (19:59)
[2022-01-09] MEDS: Ondansetron PF 4 MG/2 ML Vial IVP PRN (19:59)
[2022-01-09] MEDS: Lansoprazole 3 MG/ML ORAL SUSPENSION PER TUBE SCH (21:07)
[2022-01-09 21:51] LABS: Anion Gap 10 mmol/L (10-20); BUN (Urea Nitrogen) 95 mg/dL (9.8-20.1); Calc. Creatinine Clearance 34 mL/min (70-130); Calcium 8.2 mg/dL (7.8-10.44); Carbon Dioxide 32 mmol/L (23-31); Chloride 100 mmol/L (98-107); Estimated GFR 32; Glucose 99 mg/dL (80-115); Sodium 139 mmol/L (136-145)
[2022-01-09 21:59] LABS: Hemoglobin 10.3 g/dL (12.0-15.5); Mean Corpuscular HGB CONC 33.7 g/dL (32.0-36.0); Mean Corpuscular Hemoglobin 31.9 pg (27.0-33.0); Mean Corpuscular Volume 94.7 fl (81.6-98.3); Platelet Count 94 10x3/uL (150-450); RBC Distribution Width 16.9 % (11.5-14.5); Red Blood Cell (RBC) Count 3.23 10x6/uL (3.90-5.03)
[2022-01-09 22:00] LABS: MDiff Complete? YES
[2022-01-09] MEDS: Melatonin 3 MG TAB PO SCH (22:05)
[2022-01-09 22:18] LABS: Band 18 % (5-11); Lymphocytes 16 % (21-51); Metamyelocyte 38 % (0-0); Monocytes 2 % (0-10); Neutrophil 22 % (42-75); Nucleated RBC 12 % (0)
[2022-01-09 22:19] LABS: Phosphorus 5.2 mg/dL (2.3-4.7)
[2022-01-09 22:20] LABS: Anisocytosis MODERATE=16-30 cells (100X) (0-5/hpf); Hypochromia SLIGHT = 6-15 cells (100X) (0-5/hpf); Macrocytosis SLIGHT = 6-15 cells (100X) (0-5/hpf); Microcytosis SLIGHT = 6-15 cells (100X) (0-5/hpf); Polychromasia SLIGHT = 2-3 cells (100X) (0-2/hpf)
[2022-01-09 22:21] LABS: Platelet Morphology Comment Appears Decreased; Tear Drops SLIGHT = 2-5 cells (100X) (0-1/hpf)
[2022-01-09] MEDS: Potassium Chloride 20 MEQ in Premix Bag 1 BAG IVPB SCH (22:31)
[2022-01-10] MEDS: Potassium Chloride 20 MEQ in Premix Bag 1 BAG IVPB SCH (00:52)
[2022-01-10 04:39] LABS: Hemoglobin 10.2 g/dL (12.0-15.5); Mean Corpuscular HGB CONC 33.9 g/dL (32.0-36.0); Mean Corpuscular Hemoglobin 31.8 pg (27.0-33.0); Mean Corpuscular Volume 93.8 fl (81.6-98.3); Platelet Count 92 10x3/uL (150-450); RBC Distribution Width 17.2 % (11.5-14.5); Red Blood Cell (RBC) Count 3.21 10x6/uL (3.90-5.03); White Blood Cell (WBC) Count 1.6 10x3/uL (3.5-10.5)
[2022-01-10 04:40] LABS: Anion Gap 18 mmol/L (10-20); BUN (Urea Nitrogen) 96 mg/dL (9.8-20.1); Calc. Creatinine Clearance 37 mL/min (70-130); Calcium 8.2 mg/dL (7.8-10.44); Carbon Dioxide 31 mmol/L (23-31); Chloride 109 mmol/L (98-107); Estimated GFR 36; Glucose 97 mg/dL (80-115); Potassium 3.9 mmol/L (3.5-5.1); Sodium 154 mmol/L (136-145)
[2022-01-10 05:31] LABS: MDiff Complete? YES
[2022-01-10 06:25] LABS: Anisocytosis MODERATE=16-30 cells (100X) (0-5/hpf); Hypochromia SLIGHT = 6-15 cells (100X) (0-5/hpf); Microcytosis SLIGHT = 6-15 cells (100X) (0-5/hpf); Platelet Morphology Comment Appears Decreased; Polychromasia SLIGHT = 2-3 cells (100X) (0-2/hpf)
[2022-01-10 06:26] LABS: Lymphocytes 20 % (21-51); Monocytes 6 % (0-10); Neutrophil 64 % (42-75)
[2022-01-10] MEDS: Cefepime 1 GM in Sodium Chloride 0.9% 100 ML IVPB SCH ×2 (08:49→20:08)
[2022-01-10] MEDS: Docusate 100 MG CAP PO SCH (08:50)
[2022-01-10] MEDS: Polyethylene Glycol 3350 17 GM Packet PO SCH (08:50)
[2022-01-10] MEDS: Clopidogrel Bisulfate 75 MG TAB PO SCH (08:51)
[2022-01-10] MEDS: Folic Acid 1 MG TAB PO SCH (08:51)
[2022-01-10] MEDS: Colchicine 0.6 MG TAB PO SCH (08:51)
[2022-01-10] MEDS: Multivit, Therapeutic 1 TAB PO SCH (08:51)
[2022-01-10] MEDS: Amiodarone 200 MG TAB PO SCH (08:51)
[2022-01-10] MEDS: Apixaban 5 MG TAB PO SCH ×2 (08:52→20:07)
[2022-01-10] MEDS: Nystatin 500,000 UNITS/5 ML UDCUP SSW SCH ×4 (08:52→20:07)
[2022-01-10] MEDS: Furosemide 40 MG/4 ML VIAL SLOW IVP SCH (08:52)
[2022-01-10] MEDS: Allopurinol 100 MG TAB PO SCH (08:55)
[2022-01-10] MEDS: Melatonin 3 MG TAB PO SCH (20:07)
[2022-01-10] MEDS: Lansoprazole 3 MG/ML ORAL SUSPENSION PER TUBE SCH (20:10)
[2022-01-10] MEDS: EPOETIN ALFA-EPBX (NON-ESRD) 10,000 UNIT/ML VIAL SC SCH (23:40)
[2022-01-11 04:37] LABS: Anion Gap 17 mmol/L (10-20); BUN (Urea Nitrogen) 101 mg/dL (9.8-20.1); Calc. Creatinine Clearance 44 mL/min (70-130); Calcium 7.7 mg/dL (7.8-10.44); Carbon Dioxide 30 mmol/L (23-31); Chloride 106 mmol/L (98-107); Estimated GFR 41; Glucose 103 mg/dL (80-115); Potassium 3.8 mmol/L (3.5-5.1); Sodium 149 mmol/L (136-145)
[2022-01-11] MEDS ORDERED: DOBUTamine 500 mg/250 ml 250 ML ONE (04:45)
[2022-01-11 04:46] LABS: Hemoglobin 7.5 g/dL (12.0-15.5); Mean Corpuscular HGB CONC 32.5 g/dL (32.0-36.0); Mean Corpuscular Hemoglobin 31.5 pg (27.0-33.0); Mean Corpuscular Volume 97.1 fl (81.6-98.3); Platelet Count 72 10x3/uL (150-450); RBC Distribution Width 16.1 % (11.5-14.5); Red Blood Cell (RBC) Count 2.38 10x6/uL (3.90-5.03); White Blood Cell (WBC) Count 1.1 10x3/uL (3.5-10.5)
[2022-01-11] MEDS ORDERED: DOBUTamine 500 mg/250 ml 500 MG in Premix Bag 1 BAG IVPB SCH (05:00)
[2022-01-11 05:14] LABS: MDiff Complete? YES
[2022-01-11] MEDS ORDERED: Norepinephrine 8 MG/0.9% NS 250 ML ONE (05:55)
[2022-01-11 06:00] LABS: Lymphocytes 32 % (21-51); Myelocyte 14 % (0-0); Neutrophil 34 % (42-75); Promyelocytes 4 % (0-0)
[2022-01-11 06:02] LABS: Anisocytosis MODERATE=16-30 cells (100X) (0-5/hpf); Hypochromia SLIGHT = 6-15 cells (100X) (0-5/hpf); Macrocytosis MODERATE=16-30 cells (100X) (0-5/hpf); Microcytosis MODERATE=15-30 cells (100X) (0-5/hpf); Ovalocytes MODERATE= 6-15 cells (100X) (0-1/hpf); Platelet Morphology Comment Appears Decreased; Poikilocytosis MODERATE=16-30 cells (100X) (0-5/hpf); Polychromasia MODERATE = 3-4 cells (100X) (0-2/hpf)
[2022-01-11] MEDS: Allopurinol 100 MG TAB PO SCH (09:11)
[2022-01-11] MEDS: Amiodarone 200 MG TAB PO SCH (09:12)
[2022-01-11] MEDS: Cefepime 1 GM in Sodium Chloride 0.9% 100 ML IVPB SCH ×2 (09:13→21:13)
[2022-01-11] MEDS: Folic Acid 1 MG TAB PO SCH (09:16)
[2022-01-11] MEDS: Docusate 100 MG CAP PO SCH (09:16)
[2022-01-11] MEDS: Polyethylene Glycol 3350 17 GM Packet PO SCH (09:17)
[2022-01-11] MEDS: Multivit, Therapeutic 1 TAB PO SCH (09:17)
[2022-01-11] MEDS ORDERED: Pantoprazole 40 MG VIAL IVP SCH (09:30)
[2022-01-11] MEDS: Furosemide 40 MG/4 ML VIAL SLOW IVP SCH (09:30)
[2022-01-11] MEDS: Nystatin 500,000 UNITS/5 ML UDCUP SSW SCH ×4 (09:58→21:15)
[2022-01-11] MEDS ORDERED: EPINEPHrine 1 MG/10 ML Abboject SYRINGE ONE (10:46)
[2022-01-11] MEDS ORDERED: PROPOFOL 40 ML ONE (11:01)
[2022-01-11] MEDS ORDERED: Lidocaine 2% MPF 10 ML AMP (For Epidural Use) ONE (11:02)
[2022-01-11 11:15] LABS: PTT 69.7 sec (22.0-33.0)
[2022-01-11] MEDS ORDERED: Ketamine 50 MG/ML (10ML VIAL) ONE (11:17)
[2022-01-11] MEDS ORDERED: HYDROmorphone 0.5 MG/0.5 ML SYRINGE ONE (11:17)
[2022-01-11] MEDS ORDERED: Ondansetron PF 4 MG/2 ML Vial ONE (11:21)
[2022-01-11] MEDS ORDERED: Succinylcholine 200 MG/10 ml SYRINGE FS ONE (11:21)
[2022-01-11] MEDS ORDERED: Dexamethasone 4 mg/ml Vial ONE (11:21)
[2022-01-11 11:35] LABS: Prothrombin Time Greater than 90.0 sec (9.5-12.1)
[2022-01-11] MEDS ORDERED: PHENYLEPHRINE-NS 100 MCG/ML 10 ML SYRINGE ONE ×4 (11:47→12:15)
[2022-01-11] MEDS ORDERED: ePHEDrine Sulfate 50 MG/10 ML VIAL ONE ×2 (11:57→12:13)
[2022-01-11 18:10] LABS: Hemoglobin 9.5 g/dL (12.0-15.5)
[2022-01-11] MEDS: Clopidogrel Bisulfate 75 MG TAB PO SCH (20:37)
[2022-01-11] MEDS: Pantoprazole 40 MG VIAL IVP SCH (21:13)
[2022-01-11] MEDS: Melatonin 3 MG TAB PO SCH ×2 (21:15→21:45)
[2022-01-11] MEDS: Lansoprazole 3 MG/ML ORAL SUSPENSION PER TUBE SCH (21:16)
[2022-01-12 04:32] LABS: Hemoglobin 9.4 g/dL (12.0-15.5); Mean Corpuscular HGB CONC 32.5 g/dL (32.0-36.0); Mean Corpuscular Hemoglobin 30.1 pg (27.0-33.0); Mean Corpuscular Volume 92.6 fl (81.6-98.3); Mean Platelet Volume 12.6 fl (7.4-10.4); Platelet Count 109 10x3/uL (150-450); RBC Distribution Width 18.1 % (11.5-14.5); Red Blood Cell (RBC) Count 3.12 10x6/uL (3.90-5.03); White Blood Cell (WBC) Count 0.8 10x3/uL (3.5-10.5)
[2022-01-12 04:33] LABS: MDiff Complete? YES
[2022-01-12 05:10] LABS: Anion Gap 21 mmol/L (10-20); BUN (Urea Nitrogen) 102 mg/dL (9.8-20.1); Calc. Creatinine Clearance 45 mL/min (70-130); Calcium 8.1 mg/dL (7.8-10.44); Carbon Dioxide 24 mmol/L (23-31); Chloride 111 mmol/L (98-107); Estimated GFR 39; Glucose 123 mg/dL (80-115); Potassium 5.2 mmol/L (3.5-5.1); Sodium 151 mmol/L (136-145)
[2022-01-12] MEDS: Norepinephrine 8 MG/0.9% NS 250 ML IVPB SCH (06:05)
[2022-01-12 06:17] LABS: Lymphocytes 18 % (21-51); Metamyelocyte 8 % (0-0); Monocytes 6 % (0-10); Myelocyte 14 % (0-0); Neutrophil 54 % (42-75)
[2022-01-12 06:21] LABS: Anisocytosis MODERATE=16-30 cells (100X) (0-5/hpf); Hypochromia SLIGHT = 6-15 cells (100X) (0-5/hpf); Macrocytosis MODERATE=16-30 cells (100X) (0-5/hpf); Microcytosis MODERATE=15-30 cells (100X) (0-5/hpf); Poikilocytosis MODERATE=16-30 cells (100X) (0-5/hpf); Polychromasia SLIGHT = 2-3 cells (100X) (0-2/hpf)
[2022-01-12 06:22] LABS: Basophilic Stippling SLIGHT = 1-2 cells (100X) (None Seen); Ovalocytes SLIGHT = 2-5 cells (100X) (0-1/hpf)
[2022-01-12 06:28] LABS: Bilirubin Neg (Negative); Blood, Urine 250 (Negative); Clarity Cloudy (Clear); Glucose, Urine (Dipstick) Normal (Negative); Ketone, Urine Negative (Negative); Leukocyte 500 (Negative); Nitrite Negative (Negative); Protein, Urine (Dipstick) 30 mg/dl (Neg-Trace); Urobilinogen Normal mg/dL (Less than 2)
[2022-01-12 06:32] LABS: Urine Culture Reflex No No
[2022-01-12 06:39] LABS: Bacteria/HPF 1+ HPF (None Seen); Oval Fat Bodies/HPF 1+ HPF (None Seen); Squamous Epithelial 0-3 HPF (0-3); Yeast-Budding 2+ HPF (None Seen); Yeast-Hyphae 2+ HPF (None Seen)
[2022-01-12 06:40] LABS: WBC/HPF 21-50 HPF (0-3)
[2022-01-12] MEDS: Furosemide 40 MG/4 ML VIAL SLOW IVP SCH (08:42)
[2022-01-12] MEDS: Multivit, Therapeutic 1 TAB PO SCH (08:42)
[2022-01-12] MEDS: Pantoprazole 40 MG VIAL IVP SCH ×2 (08:42→21:15)
[2022-01-12] MEDS: Amiodarone 200 MG TAB PO SCH (08:43)
[2022-01-12] MEDS: Allopurinol 100 MG TAB PO SCH (08:43)
[2022-01-12] MEDS: Folic Acid 1 MG TAB PO SCH (08:43)
[2022-01-12] MEDS: Docusate 100 MG CAP PO SCH (08:43)
[2022-01-12] MEDS ORDERED: Aspirin 81 mg Enteric Coated Tablet PO SCH (09:00)
[2022-01-12] MEDS: Polyethylene Glycol 3350 17 GM Packet PO SCH (09:42)
[2022-01-12] MEDS: Nystatin 500,000 UNITS/5 ML UDCUP SSW SCH ×4 (09:42→21:07)
[2022-01-12] MEDS: Colchicine 0.6 MG TAB PO SCH (09:42)
[2022-01-12] MEDS: Cefepime 1 GM in Sodium Chloride 0.9% 100 ML IVPB SCH ×2 (09:44→21:14)
[2022-01-12] MEDS: Albumin 25% 25 GM/100 ML BOT IVPB SCH ×2 (12:46→18:46)
[2022-01-12] MEDS: Melatonin 3 MG TAB PO SCH (21:07)
[2022-01-12] MEDS: Amino Acids 4.25 %/Dextrose 5% 1,000 ML IV SCH (21:07)
[2022-01-12] MEDS: Furosemide 40 MG/4 ML VIAL IVP SCH (21:15)
[2022-01-13] MEDS: Albumin 25% 25 GM/100 ML BOT IVPB SCH ×4 (00:24→18:20)
[2022-01-13 04:33] LABS: ALT (SGPT) 178 U/L (8-55); AST (SGOT) 354 U/L (5-34); Alkaline Phosphatase 94 U/L (40-110); Anion Gap 21 mmol/L (10-20); BUN (Urea Nitrogen) 116 mg/dL (9.8-20.1); Bilirubin, Total 1.7 mg/dL (0.2-1.2); Calc. Creatinine Clearance 42 mL/min (70-130); Calcium 8.5 mg/dL (7.8-10.44); Carbon Dioxide 28 mmol/L (23-31); Chloride 111 mmol/L (98-107); Estimated GFR 32; Globulin 2.2 g/dL (2.4-3.5); Glucose 124 mg/dL (80-115); Potassium 4.3 mmol/L (3.5-5.1); Protein, Total 5.2 g/dL (5.8-8.1); Sodium 156 mmol/L (136-145)
[2022-01-13 04:44] LABS: Hemoglobin 5.9 g/dL (12.0-15.5); Mean Corpuscular HGB CONC 32.1 g/dL (32.0-36.0); Mean Corpuscular Hemoglobin 29.9 pg (27.0-33.0); Mean Corpuscular Volume 93.4 fl (81.6-98.3); Mean Platelet Volume 12.4 fl (7.4-10.4); Platelet Count 61 10x3/uL (150-450); RBC Distribution Width 17.5 % (11.5-14.5); Red Blood Cell (RBC) Count 1.97 10x6/uL (3.90-5.03); White Blood Cell (WBC) Count 0.6 10x3/uL (3.5-10.5)
[2022-01-13 05:01] LABS: MDiff Complete? YES
[2022-01-13 05:11] LABS: Band 6 % (5-11); Lymphocytes 30 % (21-51); Metamyelocyte 4 % (0-0); Myelocyte 4 % (0-0); Nucleated RBC 5 % (0); Reactive Lymphocytes 2 % (0-10)
[2022-01-13 05:12] LABS: Monocytes 9 % (0-10); Neutrophil 45 % (42-75)
[2022-01-13 05:13] LABS: Anisocytosis SLIGHT = 6-15 cells (100X) (0-5/hpf); Hypochromia SLIGHT = 6-15 cells (100X) (0-5/hpf); Macrocytosis SLIGHT = 6-15 cells (100X) (0-5/hpf); Microcytosis SLIGHT = 6-15 cells (100X) (0-5/hpf); Ovalocytes SLIGHT = 2-5 cells (100X) (0-1/hpf)
[2022-01-13 05:14] LABS: Platelet Morphology Comment Appears Decreased
[2022-01-13 06:02] LABS: Hemoglobin 5.7 g/dL (12.0-15.5); Mean Corpuscular HGB CONC 34.5 g/dL (32.0-36.0); Mean Corpuscular Hemoglobin 30.6 pg (27.0-33.0); Mean Corpuscular Volume 88.7 fl (81.6-98.3); Mean Platelet Volume 12.7 fl (7.4-10.4); Platelet Count 68 10x3/uL (150-450); RBC Distribution Width 17.2 % (11.5-14.5); Red Blood Cell (RBC) Count 1.86 10x6/uL (3.90-5.03); White Blood Cell (WBC) Count 1.2 10x3/uL (3.5-10.5)
[2022-01-13] MEDS ORDERED: Clopidogrel Bisulfate 75 MG TAB PO SCH (09:00)
[2022-01-13 09:39] LABS: Prothrombin Time 77.6 sec (9.5-12.1)
[2022-01-13] MEDS: Allopurinol 100 MG TAB PO SCH (09:41)
[2022-01-13] MEDS: Amiodarone 200 MG TAB PO SCH (09:41)
[2022-01-13] MEDS: Multivit, Therapeutic 1 TAB PO SCH (09:42)
[2022-01-13] MEDS: Folic Acid 1 MG TAB PO SCH (09:42)
[2022-01-13] MEDS: Nystatin 500,000 UNITS/5 ML UDCUP SSW SCH ×4 (09:42→20:21)
[2022-01-13] MEDS: Docusate 100 MG CAP PO SCH (09:42)
[2022-01-13] MEDS: Colchicine 0.6 MG TAB PO SCH (09:42)
[2022-01-13] MEDS: Polyethylene Glycol 3350 17 GM Packet PO SCH (09:43)
[2022-01-13] MEDS: Pantoprazole 40 MG VIAL IVP SCH ×2 (09:48→20:21)
[2022-01-13] MEDS: Furosemide 40 MG/4 ML VIAL IVP SCH (09:48)
[2022-01-13] MEDS ORDERED: Metolazone 5 MG TAB PO SCH (10:00)
[2022-01-13] MEDS: Cefepime 1 GM in Sodium Chloride 0.9% 100 ML IVPB SCH (10:02)
[2022-01-13] MEDS: Norepinephrine 8 MG/0.9% NS 250 ML IVPB SCH (10:06)
[2022-01-13] MEDS: Dextrose 5% in Water 1,000 ML IV SCH (11:12)
[2022-01-13] MEDS: Amino Acids 4.25 %/Dextrose 5% 1,000 ML IV SCH (13:29)
[2022-01-13 14:56] LABS: Hemoglobin 7.2 g/dL (12.0-15.5); Mean Corpuscular HGB CONC 34.8 g/dL (32.0-36.0); Mean Corpuscular Hemoglobin 30.8 pg (27.0-33.0); Mean Corpuscular Volume 88.5 fl (81.6-98.3); Mean Platelet Volume 13.5 fl (7.4-10.4); Platelet Count 45 10x3/uL (150-450); RBC Distribution Width 14.7 % (11.5-14.5); Red Blood Cell (RBC) Count 2.34 10x6/uL (3.90-5.03); White Blood Cell (WBC) Count 0.8 10x3/uL (3.5-10.5)
[2022-01-13 15:03] LABS: Anion Gap 17 mmol/L (10-20); BUN (Urea Nitrogen) 124 mg/dL (9.8-20.1); Calc. Creatinine Clearance 36 mL/min (70-130); Calcium 8.1 mg/dL (7.8-10.44); Carbon Dioxide 30 mmol/L (23-31); Chloride 111 mmol/L (98-107); Estimated GFR 29; Glucose 231 mg/dL (80-115); Potassium 3.7 mmol/L (3.5-5.1); Sodium 154 mmol/L (136-145)
[2022-01-13 15:28] LABS: Band 8 % (5-11); Lymphocytes 18 % (21-51); Monocytes 2 % (0-10); Myelocyte 2 % (0-0); Nucleated RBC 10 % (0); Reactive Lymphocytes 4 % (0-10)
[2022-01-13 15:30] LABS: Neutrophil 66 % (42-75)
[2022-01-13] MEDS ORDERED: Phytonadione 10 MG/ML AMP SC SCH (15:30)
[2022-01-13 15:31] LABS: Macrocytosis SLIGHT = 6-15 cells (100X) (0-5/hpf); Microcytosis SLIGHT = 6-15 cells (100X) (0-5/hpf)
[2022-01-13 15:32] LABS: Anisocytosis MODERATE=16-30 cells (100X) (0-5/hpf)
[2022-01-13 15:33] LABS: Howell Jolly Bodies SLIGHT = 1-2 cells (100X) (None Seen); Ovalocytes SLIGHT = 2-5 cells (100X) (0-1/hpf)
[2022-01-13 15:34] LABS: Large Platelets SLIGHT; Platelet Morphology Comment Appears Decreased
[2022-01-13 15:40] LABS: Hypochromia SLIGHT = 6-15 cells (100X) (0-5/hpf); MDiff Complete? YES; Polychromasia SLIGHT = 2-3 cells (100X) (0-2/hpf)
[2022-01-13] MEDS ORDERED: Multivitamins, Adult 10 ML, ZINC/COPPER/MANGANESE/SELENIUM 1 ML in D15W-AA 5% w/o Lytes... IV SCH (17:00)
[2022-01-13] MEDS: Melatonin 3 MG TAB PO SCH (20:21)
[2022-01-14] MEDS: Albumin 25% 25 GM/100 ML BOT IVPB SCH (03:39)
[2022-01-14 03:47] LABS: Hemoglobin 5.1 g/dL (12.0-15.5); Mean Corpuscular HGB CONC 33.3 g/dL (32.0-36.0); Mean Corpuscular Hemoglobin 30.5 pg (27.0-33.0); Mean Corpuscular Volume 91.6 fl (81.6-98.3); Mean Platelet Volume 14.5 fl (7.4-10.4); Platelet Count 29 10x3/uL (150-450); RBC Distribution Width 15.3 % (11.5-14.5); Red Blood Cell (RBC) Count 1.67 10x6/uL (3.90-5.03); White Blood Cell (WBC) Count 0.9 10x3/uL (3.5-10.5)
[2022-01-14 03:54] LABS: INR-International Normal Ratio 1.4; PTT 39.1 sec (22.0-33.0); Prothrombin Time 15.4 sec (9.5-12.1)
[2022-01-14 03:58] LABS: ALT (SGPT) 97 U/L (8-55); AST (SGOT) 162 U/L (5-34); Albumin 3.2 g/dL (3.4-4.8); Alkaline Phosphatase 55 U/L (40-110); Anion Gap 17 mmol/L (10-20); BUN (Urea Nitrogen) 118 mg/dL (9.8-20.1); Bilirubin, Total 1.7 mg/dL (0.2-1.2); Calc. Creatinine Clearance 41 mL/min (70-130); Calcium 8.2 mg/dL (7.8-10.44); Carbon Dioxide 31 mmol/L (23-31); Chloride 109 mmol/L (98-107); Estimated GFR 34; Globulin 1.4 g/dL (2.4-3.5); Glucose 211 mg/dL (80-115); Potassium 3.1 mmol/L (3.5-5.1); Protein, Total 4.6 g/dL (5.8-8.1); Sodium 154 mmol/L (136-145)
[2022-01-14 04:47] LABS: Lymphocytes 36 % (21-51); Metamyelocyte 6 % (0-0); Monocytes 8 % (0-10); Myelocyte 2 % (0-0); Nucleated RBC 6 % (0)
[2022-01-14 04:48] LABS: Neutrophil 48 % (42-75)
[2022-01-14 04:49] LABS: Anisocytosis SLIGHT = 6-15 cells (100X) (0-5/hpf); Macrocytosis SLIGHT = 6-15 cells (100X) (0-5/hpf)
[2022-01-14 04:50] LABS: Platelet Morphology Comment Appears Decreased
[2022-01-14 04:51] LABS: MDiff Complete? YES
[2022-01-14] MEDS: Dextrose 5% in Water 1,000 ML IV SCH (05:38)
[2022-01-14] MEDS ORDERED: Potassium Bicarbonate/Cit Ac 20 MEQ TAB PO SCH (06:00)
[2022-01-14] MEDS ORDERED: Potassium Chloride 20 MEQ in Premix Bag 1 BAG IVPB SCH (06:15)
[2022-01-14] MEDS: Norepinephrine 8 MG/0.9% NS 250 ML IVPB SCH ×3 (06:25→20:04)
[2022-01-14] MEDS: Colchicine 0.6 MG TAB PO SCH (08:23)
[2022-01-14] MEDS: Allopurinol 100 MG TAB PO SCH (08:23)
[2022-01-14] MEDS: Docusate 100 MG CAP PO SCH (08:23)
[2022-01-14] MEDS: Amiodarone 200 MG TAB PO SCH (08:23)
[2022-01-14] MEDS: Polyethylene Glycol 3350 17 GM Packet PO SCH (08:24)
[2022-01-14] MEDS: Nystatin 500,000 UNITS/5 ML UDCUP SSW SCH ×4 (08:24→20:04)
[2022-01-14] MEDS: Folic Acid 1 MG TAB PO SCH (08:24)
[2022-01-14] MEDS: Multivit, Therapeutic 1 TAB PO SCH (08:24)
[2022-01-14] MEDS: Pantoprazole 40 MG VIAL IVP SCH ×2 (08:25→20:04)
[2022-01-14] MEDS ORDERED: Cefepime 1 GM in Sodium Chloride 0.9% 100 ML IVPB SCH (09:00)
[2022-01-14 09:31] LABS: Hemoglobin 6.4 g/dL (12.0-15.5); Mean Corpuscular HGB CONC 34.2 g/dL (32.0-36.0); Mean Corpuscular Hemoglobin 30.9 pg (27.0-33.0); Mean Corpuscular Volume 90.3 fl (81.6-98.3); Platelet Count 31 10x3/uL (150-450); RBC Distribution Width 14.8 % (11.5-14.5); Red Blood Cell (RBC) Count 2.07 10x6/uL (3.90-5.03); White Blood Cell (WBC) Count 1.1 10x3/uL (3.5-10.5)
[2022-01-14 09:36] LABS: Anion Gap 19 mmol/L (10-20); BUN (Urea Nitrogen) 115 mg/dL (9.8-20.1); Calc. Creatinine Clearance 37 mL/min (70-130); Carbon Dioxide 28 mmol/L (23-31); Chloride 108 mmol/L (98-107); Estimated GFR 32; Glucose 312 mg/dL (80-115); Potassium 3.9 mmol/L (3.5-5.1); Sodium 151 mmol/L (136-145)
[2022-01-14] MEDS ORDERED: Fat Emulsion 250 ML IVPB SCH (17:00)
[2022-01-14] MEDS ORDERED: Multivitamins, Adult 10 ML, ZINC/COPPER/MANGANESE/SELENIUM 1 ML in D15W-AA 5% w/o Lytes... IV SCH (17:00)
[2022-01-14 17:45] LABS: Hemoglobin 7.3 g/dL (12.0-15.5); Mean Corpuscular HGB CONC 34.1 g/dL (32.0-36.0); Mean Corpuscular Hemoglobin 30.8 pg (27.0-33.0); Mean Corpuscular Volume 90.3 fl (81.6-98.3); Platelet Count 96 10x3/uL (150-450); RBC Distribution Width 15.1 % (11.5-14.5); Red Blood Cell (RBC) Count 2.37 10x6/uL (3.90-5.03); White Blood Cell (WBC) Count 1.3 10x3/uL (3.5-10.5)
[2022-01-14] MEDS: Melatonin 3 MG TAB PO SCH (20:04)
[2022-01-15] MEDS: Dextrose 5% in Water 1,000 ML IV SCH (01:02)
[2022-01-15] MEDS: Norepinephrine 8 MG/0.9% NS 250 ML IVPB SCH ×2 (01:03→08:36)
[2022-01-15 05:19] LABS: Anion Gap 16 mmol/L (10-20); BUN (Urea Nitrogen) 108 mg/dL (9.8-20.1); Calc. Creatinine Clearance 39 mL/min (70-130); Calcium 8.1 mg/dL (7.8-10.44); Carbon Dioxide 27 mmol/L (23-31); Chloride 104 mmol/L (98-107); Estimated GFR 34; Glucose 482 mg/dL (80-115); Hemoglobin 6.8 g/dL (12.0-15.5); Magnesium 1.8 mg/dL (1.6-2.6); Mean Corpuscular HGB CONC 34.7 g/dL (32.0-36.0); Mean Corpuscular Hemoglobin 31.6 pg (27.0-33.0); Mean Corpuscular Volume 91.2 fl (81.6-98.3); Mean Platelet Volume 13.4 fl (7.4-10.4); Platelet Count 86 10x3/uL (150-450); RBC Distribution Width 15.9 % (11.5-14.5); Red Blood Cell (RBC) Count 2.15 10x6/uL (3.90-5.03); Sodium 143 mmol/L (136-145); White Blood Cell (WBC) Count 2.7 10x3/uL (3.5-10.5)
[2022-01-15 05:26] LABS: MDiff Complete? YES; Manual Diff?? YES
[2022-01-15 06:05] LABS: Band 8 % (5-11); Eosinophils 11 % (0-10); Lymphocytes 20 % (21-51); Metamyelocyte 1 % (0-0); Monocytes 28 % (0-10); Neutrophil 25 % (42-75); Nucleated RBC 106 % (0); Reactive Lymphocytes 5 % (0-10)
[2022-01-15 06:06] LABS: Platelet Morphology Comment Appears Decreased
[2022-01-15 06:10] LABS: Anisocytosis MODERATE=16-30 cells (100X) (0-5/hpf); Basophilic Stippling SLIGHT = 1-2 cells (100X) (None Seen); Howell Jolly Bodies SLIGHT = 1-2 cells (100X) (None Seen); Hypochromia MODERATE=16-30 cells (100X) (0-5/hpf); Macrocytosis SLIGHT = 6-15 cells (100X) (0-5/hpf); Microcytosis SLIGHT = 6-15 cells (100X) (0-5/hpf); Polychromasia SLIGHT = 2-3 cells (100X) (0-2/hpf)
[2022-01-15 06:13] VITALS: BP 97/45
[2022-01-15 06:17] VITALS: BMI 32.1
[2022-01-15] MEDS: Allopurinol 100 MG TAB PO SCH (08:11)
[2022-01-15] MEDS: Docusate 100 MG CAP PO SCH (08:11)
[2022-01-15] MEDS: Amiodarone 200 MG TAB PO SCH (08:11)
[2022-01-15] MEDS: Pantoprazole 40 MG VIAL IVP SCH (08:11)
[2022-01-15] MEDS: Colchicine 0.6 MG TAB PO SCH (08:11)
[2022-01-15] MEDS: Nystatin 500,000 UNITS/5 ML UDCUP SSW SCH (08:12)
[2022-01-15] MEDS: Folic Acid 1 MG TAB PO SCH (08:12)
[2022-01-15] MEDS: Polyethylene Glycol 3350 17 GM Packet PO SCH (08:12)
[2022-01-15] MEDS ORDERED: Acetaminophen 650 MG Suppository PR PRN (09:06)
[2022-01-15 09:43] VITALS: TEMP 102
== END 2022-01-15 11:28 | disposition hospice, inpatient (51) | DRG 270 ==
LOC: CSHERS 03:03 → CSHCCL 03:51 → CSHICU 07:01 → CSHTELE 12-22 17:30 → CSHIMCU 12-27 02:13 → CSHTELE 01-05 07:02 → CSHICU 01-09 11:47
PROVIDERS: ADMIT Specialist; ATTEND Family Medicine
PROC: 5A02210 Assistance with Cardiac Output using Balloon Pump, Continuous (ICD-10-PCS; principal; 2021-12-14)
PROC: 027037Z Dilation of Coronary Artery, One Artery with Four or More Drug-eluting Intraluminal Devices, Percutaneous Approach (ICD-10-PCS; 2021-12-14)
PROC: B2111ZZ Fluoroscopy of Multiple Coronary Arteries using Low Osmolar Contrast (ICD-10-PCS; 2021-12-14)
PROC: B241ZZ3 Ultrasonography of Multiple Coronary Arteries, Intravascular (ICD-10-PCS; 2021-12-14)
PROC: 5A09357 Assistance with Respiratory Ventilation, Less than 24 Consecutive Hours, Continuous Positive Airway Pressure (ICD-10-PCS; 2021-12-26)
PROC: 30233N1 Transfusion of Nonautologous Red Blood Cells into Peripheral Vein, Percutaneous Approach (ICD-10-PCS; 2022-01-05)
PROC: 5A09357 Assistance with Respiratory Ventilation, Less than 24 Consecutive Hours, Continuous Positive Airway Pressure (ICD-10-PCS; 2022-01-05)
PROC: 0W3P8ZZ Control Bleeding in Gastrointestinal Tract, Via Natural or Artificial Opening Endoscopic (ICD-10-PCS; 2022-01-11)
PROC: 0DJD8ZZ Inspection of Lower Intestinal Tract, Via Natural or Artificial Opening Endoscopic (ICD-10-PCS; 2022-01-11)
PROC: 30233K1 Transfusion of Nonautologous Frozen Plasma into Peripheral Vein, Percutaneous Approach (ICD-10-PCS; 2022-01-11)
PROC: 6A551Z2 Pheresis of Platelets, Multiple (ICD-10-PCS; 2022-01-11)
PROC: 3E033XZ Introduction of Vasopressor into Peripheral Vein, Percutaneous Approach (ICD-10-PCS; 2022-01-11)
PROC: 06HY33Z Insertion of Infusion Device into Lower Vein, Percutaneous Approach (ICD-10-PCS; 2022-01-13)
PROC: 3E043XZ Introduction of Vasopressor into Central Vein, Percutaneous Approach (ICD-10-PCS; 2022-01-13)
PROC: 3E0336Z Introduction of Nutritional Substance into Peripheral Vein, Percutaneous Approach (ICD-10-PCS; 2022-01-13)
PROC: 5A09357 Assistance with Respiratory Ventilation, Less than 24 Consecutive Hours, Continuous Positive Airway Pressure (ICD-10-PCS; 2022-01-14)
DX: I21.09 ST elevation (STEMI) myocardial infarction involving other coronary artery of anterior wall (principal); K22.11 Ulcer of esophagus with bleeding; I50.43 Acute on chronic combined systolic (congestive) and diastolic (congestive) heart failure; K72.00 Acute and subacute hepatic failure without coma; I63.521 Cerebral infarction due to unspecified occlusion or stenosis of right anterior cerebral artery; I63.532 Cerebral infarction due to unspecified occlusion or stenosis of left posterior cerebral artery; G92.8 Other toxic encephalopathy; R57.8 Other shock; I13.0 Hypertensive heart and chronic kidney disease with heart failure and stage 1 through stage 4 chronic kidney disease, or unspecified chronic kidney disease; N17.9 Acute kidney failure, unspecified; E87.0 Hyperosmolality and hypernatremia; J98.11 Atelectasis; I47.2 Ventricular tachycardia; F05 Delirium due to known physiological condition; D61.818 Other pancytopenia; D62 Acute posthemorrhagic anemia; Z66 Do not resuscitate; Z20.822 Contact with and (suspected) exposure to COVID-19; Z51.5 Encounter for palliative care; I45.10 Unspecified right bundle-branch block; I25.10 Atherosclerotic heart disease of native coronary artery without angina pectoris; E78.5 Hyperlipidemia, unspecified; I95.9 Hypotension, unspecified; F29 Unspecified psychosis not due to a substance or known physiological condition; N18.9 Chronic kidney disease, unspecified; I25.5 Ischemic cardiomyopathy; E87.8 Other disorders of electrolyte and fluid balance, not elsewhere classified; I48.0 Paroxysmal atrial fibrillation; R45.1 Restlessness and agitation; D69.6 Thrombocytopenia, unspecified; R79.1 Abnormal coagulation profile; R53.81 Other malaise; E87.6 Hypokalemia; E66.9 Obesity, unspecified; K76.0 Fatty (change of) liver, not elsewhere classified; F41.9 Anxiety disorder, unspecified; R21 Rash and other nonspecific skin eruption; R33.9 Retention of urine, unspecified; I49.5 Sick sinus syndrome; N28.1 Cyst of kidney, acquired; Z87.442 Personal history of urinary calculi; Z88.8 Allergy status to other drugs, medicaments and biological substances; Z88.2 Allergy status to sulfonamides; Z79.899 Other long term (current) drug therapy; Z90.49 Acquired absence of other specified parts of digestive tract; Z90.710 Acquired absence of both cervix and uterus; Z98.41 Cataract extraction status, right eye; Z98.42 Cataract extraction status, left eye; Z87.891 Personal history of nicotine dependence; Z80.0 Family history of malignant neoplasm of digestive organs; Z78.1 Physical restraint status; Z68.32 Body mass index [BMI] 32.0-32.9, adult
CPT/HCPCS: 33967; 36415; 36416; 36430; 36600; 70450; 70551; 71045; 71250; 74177; 76705; 80048; 80053; 80061; 80076; 80202; 81001; 82140; 82248; 82274; 82607; 82746; 82805; 83036; 83540; 83550; 83615; 83735; 83880; 84100; 84145; 84436; 84439; 84443; 84450; 84460; 84550; 85025; 85027; 85060; 85384; 85610; 85730; 86850; 86900; 86901; 87040; 87086; 87449; 87633; 87899; 92928; 92941; 92978; 92979; 93005; 93010; 93306; 93454; 93880; 94660; 94760; 97139; 99152; 99153; C1725; C1753; C1769; C1874; C1876; C1887; C9113; C9600; C9606; J0153; J0171; J0282; J0461; J0692; J1100; J1170; J1200; J1250; J1630; J1644; J1650; J1940; J2001; J2250; J2270; J2405; J2704; J2916; J3010; J3246; J3370; J3430; J3480; J3486; J3490; J7030; J7042; J7050; J7070; P9016; P9035; P9047; P9059; Q0162; Q5106; Q9967; S0028; U0002; U0003; U0005

== ENCOUNTER 2022-01-15 11:51 | Inpatient (IN) | payer OTHER ==
[2022-01-15 12:13] VITALS: BMI 32.1
[2022-01-15 12:20] VITALS: BP 66/31
[2022-01-15] MEDS ORDERED: Morphine 2 MG/ML VIAL SLOW IVP PRN (12:29)
[2022-01-15] MEDS ORDERED: diphenhydrAMINE 50 MG/ML VIAL IVP PRN (12:30)
[2022-01-15] MEDS ORDERED: Promethazine HCl 25 MG SUPP PR PRN (12:30)
[2022-01-15] MEDS ORDERED: Ondansetron PF 4 MG/2 ML Vial IVP PRN (12:30)
[2022-01-15] MEDS ORDERED: Scopolamine 1.5 mg/72 hour Patch TOP PRN (12:30)
[2022-01-15] MEDS ORDERED: Haloperidol Lactate 5 MG/ML VIAL SLOW IVP PRN (12:30)
[2022-01-15] MEDS ORDERED: Midazolam HCl 2 mg/2 ml Vial SLOW IVP PRN ×2 (12:30→12:31)
[2022-01-15] MEDS ORDERED: Acetaminophen 650 MG Suppository PR PRN (12:30)
[2022-01-15] MEDS ORDERED: Bisacodyl 10 MG SUPP PR PRN (12:31)
[2022-01-15 12:37] VITALS: TEMP 98.1
== END 2022-01-15 14:15 | disposition expired | DRG 951 ==
LOC: CSHHOSPICE 11:51 → CSHICU 12:25
PROVIDERS: ADMIT Family Medicine; ATTEND Family Medicine
PROC: 5A09357 Assistance with Respiratory Ventilation, Less than 24 Consecutive Hours, Continuous Positive Airway Pressure (ICD-10-PCS; principal; 2022-01-15)
DX: Z51.5 Encounter for palliative care (principal); I21.4 Non-ST elevation (NSTEMI) myocardial infarction; D61.818 Other pancytopenia; I11.0 Hypertensive heart disease with heart failure; G47.30 Sleep apnea, unspecified; F17.210 Nicotine dependence, cigarettes, uncomplicated; I50.9 Heart failure, unspecified; R09.02 Hypoxemia; I95.9 Hypotension, unspecified; Z88.2 Allergy status to sulfonamides; Z88.8 Allergy status to other drugs, medicaments and biological substances; Z86.73 Personal history of transient ischemic attack (TIA), and cerebral infarction without residual deficits
CPT/HCPCS: J2270